=== PATIENT | female | born 1975 | race Caucasian/White ===

== ENCOUNTER 2017-01-13 10:35 | Emergency (ER) | payer OTHER ==
--- NOTE | 2017-01-13 13:04 | ED CLINICAL REPORT ---
Clinical Report - Physicians/Mid Levels [facility] [address] [place] [address] 01/13/2017 10:36 Patient: ADRIAN MEJIAS Time Seen: 11:21. Arrived- By private vehicle. Historian- patient. HISTORY OF PRESENT ILLNESS Chief Complaint: VOMITING and DIARRHEA. This started about 6 days ago and is still present. No recent travel. She has had nausea, vomiting, diarrhea and a change in diabetic routine (Pt is chronically noncompliant with her diabetic and antihypertensive medications.). No black stools, bloody stools, abdominal pain, constipation or flank pain. No history of possible bad food exposure or known contact with a sick individual. Has not recently been camping or on antibiotics. The illness is described as moderate. (patient states that for the first 5 days, she is having diarrhea only. However, the vomiting started this morning at 4:30. Patient states she vomited twice and has not vomited since. She states that she has only had a couple of sips of water however.). Similar symptoms previously: Occasionally. Recent medical care: Not recently seen/assessed. REVIEW OF SYSTEMS No fever, muscle aches, difficulty with urination, dark urine or headache. No dizziness, sore throat, cough, chest pain or difficulty breathing. No excessive urination, skin rash, jaundice, back pain or fainting episodes. No blurred vision. Denies current . All systems otherwise negative, except as recorded above. PAST HISTORY Problems: Substance Abuse. Bipolar Disorder. Anxiety Reaction. Ulna Fracture. Hyperglycemia. TMJ Syndrome. Cluster Headache. Suicidal Ideation. Depression. Hypertension. Diabetes Mellitus. Dental Caries. Immunizations. LNMP - Last Normal Menstrual Period. Additional Surgeries: . Tonsillectomy. Tubal Ligation. Medications: None. Allergies: Celexa. PCN. SOCIAL HISTORY Smoker- current status unknown. No alcohol use or drug use. ADDITIONAL NOTES The nursing notes have been reviewed. PHYSICAL EXAM Vital Signs: 01/13/2017 10:43 BP: 140/85. HR: 110. RR: 20. O2 saturation: 100%. Temp: 98.2 F. Pain level now: 5/10. Have been reviewed. Appearance: Alert. Oriented X3. No acute distress. Eyes: Pupils equal, round and reactive to light. Eyes normal inspection. ENT: Nose normal. Neck: Normal inspection. CVS: Normal heart rate and rhythm. Heart sounds normal. Pulses normal. Respiratory: No respiratory distress. Breath sounds normal. Abdomen: Soft. Mild tenderness diffusely. Back: Normal inspection. Skin: Skin warm and dry. Normal skin color. No rash. Normal skin turgor. Extremities: Extremities exhibit normal ROM. No lower extremity edema. Neuro: Oriented X 3. No motor deficit. No sensory deficit. LABS, X-RAYS, AND EKG Laboratory Tests: UA-Culture if indicated: (SUGAR: 01/13/2017 12:00) ( [facility] 01/13/2017 12:34) Final results Test Result Flag Units (Reference) URINE COLOR YELLOW URINE APPEARANCE CLEAR URINE GLUCOSE NEGATIVE (NEGATIVE) URINE BILIRUBIN NEGATIVE (NEGATIVE) URINE KETONE NEGATIVE (NEGATIVE) URINE SPECIFIC GRAVITY >= 1.030 (1.010-1.030) URINE PH 6.0 (5.0-8.0) URINE PROTEIN NEGATIVE (NEGATIVE) URINE UROBILINOGEN 0.2 EU/dL (0.2-1.0) URINE NITRITE NEGATIVE (NEGATIVE) URINE BLOOD NEGATIVE (NEGATIVE) URINE LEUK ESTERASE NEGATIVE (NEGATIVE) URINE RBC 0-1 rbc/hpf (0-1) URINE WBC 1-3 wbc/hpf (0-1) URINE EPITHELIAL CELLS 1-3 EPI/hpf (0-5) URINE BACTERIA FEW (1+) (NONE SEEN) URINE COMMENT CULT NOT INDICATED 1+ AMORPHOUS CRYSTALSURINE CULTURES ARE SET-UP BASED ON THE FOLLOWING CRITERIA:POSITIVE NITRITEPOSITIVE LEUKOCYTE ESTERASEGREATER THAN 10 WHITE BLOOD CELLSMODERATE (2+) OR GREATER BACTERIA Urine: (SUGAR: 01/13/2017 12:00) ( [facility] 01/13/2017 12:29) Final results Test Result Flag Units (Reference) URINE NEGATIVE CBC w Diff: (SUGAR: 01/13/2017 10:55) ( [facility] 01/13/2017 13:06) Final results Test Result Flag Units (Reference) WHITE BLOOD COUNT 18.1 H K/uL (4.5-11.5) RED BLOOD COUNT 4.39 M/uL (4.00-5.20) HEMOGLOBIN 14.4 gm/dL (12.0-16.0) HEMATOCRIT 42.4 % (36.0-46.0) MEAN CELL VOLUME 97 fL (80-100) MEAN CORPUSCULAR HGB 33 pg (26-34) MEAN CORPUSCULAR HGB CONC 34 g/dL (31-37) RED CELL DISTRIBUTION WIDTH 12.2 % (11.6-14.8) PLATELET COUNT 266 K/uL (150-400) NEUTROPHIL % 82.2 H % (50-75) LYMPH % 12.0 L % (25-40) MONO % 4.8 % (3-14) EOSINOPHIL % 0.8 % (0-4) BASOPHIL % 0.2 % (0-2) CMP: (SUGAR: 01/13/2017 10:55) ( MsgRcvd 01/13/2017 11:27) Final results Test Result Flag Units (Reference) GLUCOSE 152 H mg/dL (70-110) BUN 11 mg/dL (7-18) CREATININE 1.0 mg/dL (0.6-1.3) Estimated GFR >60 mL/min Estimated GFR- >60 mL/min Note: Persistent reduction over 3 months in eGFR<60 mL/min/1.73 m2 defines CKD. Patients with eGFR values>=60 mL/min/1.73 m2 may also have CKD if evidence ofpersistent proteinuria. Additional information may be foundat www.kidney.org. SODIUM 138 mmol/L (136-145) POTASSIUM 4.2 mmol/L (3.5-5.1) CHLORIDE 102 mmol/L (98-107) CARBON DIOXIDE 26 mmol/L (21-32) CALCIUM 8.5 mg/dL (8.5-10.1) TOTAL PROTEIN 7.1 g/dL (6.4-8.2) ALBUMIN 3.1 L g/dL (3.3-5.0) BILIRUBIN, TOTAL 0.5 mg/dL (0.0-1.0) ALKALINE PHOSPHATASE 72 U/L (46-116) AST (SGOT) 15 U/L (15-37) ALT (SGPT) 28 U/L (12-78) . Pulse Oximetry: 01/13/2017 10:43 O2 saturation: 100%. (FIO2 - room air). Interpretation: normal. PROGRESS AND PROCEDURES Course of Care: The patient was given 1 L bolus of 0.9 normal saline, as well as IV Zofran 8 mg. She was found to be feeling somewhat better. Laboratory studies were obtained, and patient was found to have a mild hyperglycemia with a glucose of 152. The remainder of her labs were unremarkable as was her urinalysis. I did discuss with the patient that she should work with her primary care physician to get back on her medications. In the meantime, I will send her home with oral dissolving Zofran. Patient should have a clear liquid diet until she is improved. Patient counseled in person regarding the patient's stable condition, test results, diagnosis and need for follow-up. Old medical records reviewed. Disposition: Discharged in improved condition. Condition: stable. CLINICAL IMPRESSION Acute viral gastroenteritis. INSTRUCTIONS Drink plenty of fluids. Warnings: GENERAL WARNINGS: Return or contact your physician immediately if your condition worsens or changes unexpectedly, if not improving as expected, or if other problems arise. Prescription Medications: Zofran (orally disintegrating tablets) 4 mg: take 1-2 orally every 6 hours as needed for nausea. Dispense twenty (20). No refill. Substitution is permissible. Understanding of the discharge instructions verbalized by patient and family. Follow-up with: [facility], , , [address], , [place], [address] Follow up. Call for the next available appointment. Reason for referral: Establish care. (Electronically signed by Angely Terry MD 01/13/2017 13:23)
--- NOTE | 2017-01-13 13:04 | ED NURSING NOTES ---
Clinical Report - Nurses [facility] [address] [place] [address] 01/13/2017 10:36 Patient: ADRIAN MEJIAS TRIAGE Acuity: LEVEL 3. Chief Complaint: ABDOMINAL PAIN, VOMITING and DIARRHEA and (hip pain). Alert. No acute distress. SEPSIS SCREEN: Sepsis Screen. Negative (no infection suspected/documented). --10:47 Mandie Gong R.N. 10:43 01/13/17. BP: 140/85. HR: 110. RR: 20. O2 saturation: 100%. Temp: 98.2 F (oral). Pain level now: 12/31. --10:47 Mandie Gong R.N. Weight: 63.5 kg stated. Height/Length: 64 inches Per Patient. BMI: 24. --10:45 Mandie Gong R.N. Medications None. --10:44 Mandie Gong R.N. Medication/allergy information source: the patient. --10:47 Mnadie Gong R.N. Allergies Celexa. PCN. --10:44 Mandie Gong R.N. History Arrived by private vehicle. Historian: patient. Accompanied by mother. Primary physician (none). Onset. (6 days ago). Treatment ACCOUNT MANAGER: None. PAST MEDICAL HX: Immunizations: up-to-date. Last normal menstrual period was 3 weeks ago. Sexual history - sexually active. No contraception. SOCIAL HX: Light tobacco smoker (cigarette)- less than 1/2 a pack per day. No alcohol use or drug use. FALL RISK ASSESSMENT: Fall risk assessment completed. No fall risk identified. NUTRITIONAL RISK ASSESSMENT: The nutritional risk assessment revealed no deficiencies. FUNCTIONAL ASSESSMENT: Functional assessment: no impairments noted. LEARNING NEEDS ASSESSMENT: The learning needs assessment revealed no barriers. SKIN INTEGRITY ASSESSMENT: Skin integrity risk assessment completed. No skin integrity risk identified. --10:47 Mandie Gong R.N. PROBLEMS: Substance Abuse. Viral Disease. Mental Illness. Bipolar Disorder. Anxiety Reaction. Ulna Fracture. Headache. Hyperglycemia. TMJ Syndrome. Cluster Headache. Suicidal Ideation. Depression. Hypertension. Diabetes Mellitus. Dental Pain. Dental Caries. Immunizations. LNMP - Last Normal Menstrual Period. --10:44 Mandie Gong R.N. The following entry was modified by Angely Terry MD, 12:55 Reason - duplicate <<STRICKEN ENTRY-- Chronic Headache. --12:54 Angely Terry MD --END STRIKE>>. ADDITIONAL SURGERIES: . Tonsillectomy. --10:44 Mandie Gnog R.N. Tubal Ligation. --10:46 Mandie Gong R.N. Assessment GENERAL / NEURO / PSYCH: Alert. Oriented X 4. Appears in no acute distress. Patient appears calm and cooperative. RESPIRATORY: Respirations not labored. CVS: Capillary refill less than 2 seconds. GI / : Abdomen soft and nontender. SKIN: Mucous membranes are pink. Skin is warm and dry. --10:47 Mandie Gong R.N. Interventions ID band on patient. To treatment room. --10:47 Mandie Gong R.N. PHYSICAL ASSESSMENT 10:47 01/13/17. Ambulatory to room. GENERAL / NEURO / PSYCH: Alert. Oriented X 4. Appears in no acute distress. HEENT: Mucous membranes are pink. RESPIRATORY: Respirations not labored. CVS: Capillary refill less than 2 seconds. GI / : Abdomen soft and nontender. SKIN: Skin is warm and dry. --10:47 Mandie Gong R.N. NURSING PROGRESS NOTES 10:48 01/13/17. Patient gowned. Two patient identifiers checked. Call light placed in reach. Side rails up x 1. Bed placed in lowest position. Brakes of bed on. Patient ready for evaluation- chart flagged and ED physician notified. --10:48 Mandie Gong R.N. 11:03 01/13/2017 Site #1 started via IV in the right antecubital space with an 20g angiocath, with aseptic technique and good blood return; one attempt. Blood drawn: rainbow set. Labeled in the presence of the patient. --11:03 Mandie Gong R.N. 11:04 01/13/2017 Started bag #1 1000 mL IV Fluids IV NS (Saline); at 999 mL/hr over 1 hour(s) via site #1 via IV pump. Allergies verified and confirmed 5 rights. IV patency established. IV site checked: no pain, redness, or swelling. IV flushed thoroughly pre- and post-medication administration. --11:04 Mandie Gong R.N. 11:45 01/13/2017 Zofran (Ondansetron HCl) IVP 8 mg given over 2 minute(s) via site #1. Allergies verified and confirmed 5 rights. IV patency established. IV site checked: no pain, redness, or swelling. IV flushed thoroughly pre- and post-medication administration. --11:45 Liliam Palacios R.N. 12:02 01/13/17. Patient ID band checked for patient name and birthdate. Instructions provided to collect clean catch urine and patient verbalized understanding. Clean catch urine collected with return of yellow-colored clear urine; sample sent to lab for urinalysis and HCG. Specimen labeled in the presence of the patient. --12:02 Mandie Gong R.N. 12:02 01/13/17. ( Pt ambulated to BR.). --12:02 Mandie Gong R.N. 12:55 01/13/2017 IV Fluids IV NS Discontinued: bag #1 infused upon discharge. Total amount infused: 1000 mL. IV patency established. IV site checked: no pain, redness, or swelling. IV flushed thoroughly. --13:11 Delbert Burnette R.N. DISPOSITION / DISCHARGE 13:09 01/13/2017 Site #1 removed upon discharge. Catheter intact. --13:09 Delbert Burnette R.N. 13:10 01/13/17. Condition at departure: improved. The goals identified in the patient's plan of care were met. No learning barriers present. Discharge instructions provided and reviewed with the patient and family. Reviewed warnings. Reviewed medication(s). Treatments reviewed. Patient and family verbalized understanding. Written instructions provided in [employer]. The patient was discharged by the physician. She was discharged home and accompanied by family. She left the Emergency Department ambulatory and via private vehicle. Family member driving. FALL RISK ASSESSMENT: Fall risk assessment completed. No fall risk identified. --13:10 Delbert Burnette R.N. 13:09 01/13/17. BP: 126/87. HR: 99. RR: 13. O2 saturation: 98% on room air. Temp: 97.9 F (oral). --13:10 Delbert Burnette R.N. 13:11 01/13/17. Departure time: 13:11. --13:11 Delbert Burnette R.N. Locked/Released at 01/13/2017 13:14 by Delbert Burnette R.N.
--- NOTE | 2017-01-13 13:04 | ED ORDER SUMMARY ---
..... Patient: ADRIAN MEJIAS OrderSheet [facility] VisitID: [id number] [address] [place] [address] 41y, F Registration Date/Time: 01/13/2017 ORDER SHEET Weight: 63.5 kg (stated) Allergies: Celexa, PCN GENERAL ORDERS: CBC w Diff Urgent (11:04 01/13/2017 MWinterer R.N. per protocol) (Ack 11:13 NHouse ER Tech1) (11:45 SReitz R.N.) CMP Urgent (11:01/13/2017 MWinterer R.N. per protocol) (Ack 11:13 NHouse ER Tech1) (11:45 SReitz R.N.) UA-Culture if indicated Urgent (12:01/13/2017 MWinterer R.N. per protocol) (Ack 12:02 NHouse ER Tech1) (12:02 NHouse ER Tech1) Urine Urgent (12:01/13/2017 MWinterer R.N. per protocol) (Ack 12:02 NHouse ER Tech1) (12:02 NHouse ER Tech1) MEDICATION ORDERS: IV FLUIDS: IV NS : initial bolus none -, then 1000 mL/hr (NOW) (11:03 01/13/2017 MWinterer R.N. per protocol) (11:04 MWinterer R.N.) Zofran IV 8 mg (NOW) (11:41 01/13/2017 Sergio COOL) (Ack 11:43 SReitz R.N.) (11:45 SReitz R.N.) ORDER SHEET NOTES: [Electronically signed by Delbert Burnette R.N. (13:14 01/13/2017)] [Electronically signed by Angely Terry MD (13:01/13/2017)] [Electronically locked/signed by Delbert Burnette R.N. (13:14 01/13/2017)]
--- NOTE | 2017-01-13 13:04 | ED ORDER SUMMARY ---
..... Patient: ADRIAN MEJIAS OrderSheet [facility] VisitID: [id number] [address] [place] [address] 41y, F Registration Date/Time: 01/13/2017 ORDER SHEET Weight: 63.5 kg (stated) Allergies: Celexa, PCN GENERAL ORDERS: CBC w Diff Urgent (11:04 01/13/2017 MWinterer R.N. per protocol) (Ack 11:13 NHouse ER Tech1) (11:45 SReitz R.N.) CMP Urgent (11:01/13/2017 MWinterer R.N. per protocol) (Ack 11:13 NHouse ER Tech1) (11:45 SReitz R.N.) UA-Culture if indicated Urgent (12:01/13/2017 MWinterer R.N. per protocol) (Ack 12:02 NHouse ER Tech1) (12:02 NHouse ER Tech1) Urine Urgent (12:01/13/2017 MWinterer R.N. per protocol) (Ack 12:02 NHouse ER Tech1) (12:02 NHouse ER Tech1) MEDICATION ORDERS: IV FLUIDS: IV NS : initial bolus none -, then 1000 mL/hr (NOW) (11:03 01/13/2017 MWinterer R.N. per protocol) (11:04 MWinterer R.N.) Zofran IV 8 mg (NOW) (11:41 01/13/2017 Sergio COOL) (Ack 11:43 SReitz R.N.) (11:45 SReitz R.N.) ORDER SHEET NOTES: [Electronically signed by Delbert Burnette R.N. (13:14 01/13/2017)] [Electronically signed by Angely Terry MD (13:01/13/2017)] [Electronically locked/signed by Delbert Burnette R.N. (13:14 01/13/2017)]
--- NOTE | 2017-01-13 13:04 | ED CLINICAL REPORT ---
Clinical Report - Physicians/Mid Levels [facility] [address] [place] [address] 01/13/2017 10:36 Patient: ADRIAN MEJIAS Time Seen: 11:21. Arrived- By private vehicle. Historian- patient. HISTORY OF PRESENT ILLNESS Chief Complaint: VOMITING and DIARRHEA. This started about 6 days ago and is still present. No recent travel. She has had nausea, vomiting, diarrhea and a change in diabetic routine (Pt is chronically noncompliant with her diabetic and antihypertensive medications.). No black stools, bloody stools, abdominal pain, constipation or flank pain. No history of possible bad food exposure or known contact with a sick individual. Has not recently been camping or on antibiotics. The illness is described as moderate. (patient states that for the first 5 days, she is having diarrhea only. However, the vomiting started this morning at 4:30. Patient states she vomited twice and has not vomited since. She states that she has only had a couple of sips of water however.). Similar symptoms previously: Occasionally. Recent medical care: Not recently seen/assessed. REVIEW OF SYSTEMS No fever, muscle aches, difficulty with urination, dark urine or headache. No dizziness, sore throat, cough, chest pain or difficulty breathing. No excessive urination, skin rash, jaundice, back pain or fainting episodes. No blurred vision. Denies current . All systems otherwise negative, except as recorded above. PAST HISTORY Problems: Substance Abuse. Bipolar Disorder. Anxiety Reaction. Ulna Fracture. Hyperglycemia. TMJ Syndrome. Cluster Headache. Suicidal Ideation. Depression. Hypertension. Diabetes Mellitus. Dental Caries. Immunizations. LNMP - Last Normal Menstrual Period. Additional Surgeries: . Tonsillectomy. Tubal Ligation. Medications: None. Allergies: Celexa. PCN. SOCIAL HISTORY Smoker- current status unknown. No alcohol use or drug use. ADDITIONAL NOTES The nursing notes have been reviewed. PHYSICAL EXAM Vital Signs: 01/13/2017 10:43 BP: 140/85. HR: 110. RR: 20. O2 saturation: 100%. Temp: 98.2 F. Pain level now: 5/10. Have been reviewed. Appearance: Alert. Oriented X3. No acute distress. Eyes: Pupils equal, round and reactive to light. Eyes normal inspection. ENT: Nose normal. Neck: Normal inspection. CVS: Normal heart rate and rhythm. Heart sounds normal. Pulses normal. Respiratory: No respiratory distress. Breath sounds normal. Abdomen: Soft. Mild tenderness diffusely. Back: Normal inspection. Skin: Skin warm and dry. Normal skin color. No rash. Normal skin turgor. Extremities: Extremities exhibit normal ROM. No lower extremity edema. Neuro: Oriented X 3. No motor deficit. No sensory deficit. LABS, X-RAYS, AND EKG Laboratory Tests: UA-Culture if indicated: (SUGAR: 01/13/2017 12:00) ( [facility] 01/13/2017 12:34) Final results Test Result Flag Units (Reference) URINE COLOR YELLOW URINE APPEARANCE CLEAR URINE GLUCOSE NEGATIVE (NEGATIVE) URINE BILIRUBIN NEGATIVE (NEGATIVE) URINE KETONE NEGATIVE (NEGATIVE) URINE SPECIFIC GRAVITY >= 1.030 (1.010-1.030) URINE PH 6.0 (5.0-8.0) URINE PROTEIN NEGATIVE (NEGATIVE) URINE UROBILINOGEN 0.2 EU/dL (0.2-1.0) URINE NITRITE NEGATIVE (NEGATIVE) URINE BLOOD NEGATIVE (NEGATIVE) URINE LEUK ESTERASE NEGATIVE (NEGATIVE) URINE RBC 0-1 rbc/hpf (0-1) URINE WBC 1-3 wbc/hpf (0-1) URINE EPITHELIAL CELLS 1-3 EPI/hpf (0-5) URINE BACTERIA FEW (1+) (NONE SEEN) URINE COMMENT CULT NOT INDICATED 1+ AMORPHOUS CRYSTALSURINE CULTURES ARE SET-UP BASED ON THE FOLLOWING CRITERIA:POSITIVE NITRITEPOSITIVE LEUKOCYTE ESTERASEGREATER THAN 10 WHITE BLOOD CELLSMODERATE (2+) OR GREATER BACTERIA Urine: (SUGAR: 01/13/2017 12:00) ( [facility] 01/13/2017 12:29) Final results Test Result Flag Units (Reference) URINE NEGATIVE CBC w Diff: (SUGAR: 01/13/2017 10:55) ( [facility] 01/13/2017 13:06) Final results Test Result Flag Units (Reference) WHITE BLOOD COUNT 18.1 H K/uL (4.5-11.5) RED BLOOD COUNT 4.39 M/uL (4.00-5.20) HEMOGLOBIN 14.4 gm/dL (12.0-16.0) HEMATOCRIT 42.4 % (36.0-46.0) MEAN CELL VOLUME 97 fL (80-100) MEAN CORPUSCULAR HGB 33 pg (26-34) MEAN CORPUSCULAR HGB CONC 34 g/dL (31-37) RED CELL DISTRIBUTION WIDTH 12.2 % (11.6-14.8) PLATELET COUNT 266 K/uL (150-400) NEUTROPHIL % 82.2 H % (50-75) LYMPH % 12.0 L % (25-40) MONO % 4.8 % (3-14) EOSINOPHIL % 0.8 % (0-4) BASOPHIL % 0.2 % (0-2) CMP: (SUGAR: 01/13/2017 10:55) ( MsgRcvd 01/13/2017 11:27) Final results Test Result Flag Units (Reference) GLUCOSE 152 H mg/dL (70-110) BUN 11 mg/dL (7-18) CREATININE 1.0 mg/dL (0.6-1.3) Estimated GFR >60 mL/min Estimated GFR- >60 mL/min Note: Persistent reduction over 3 months in eGFR<60 mL/min/1.73 m2 defines CKD. Patients with eGFR values>=60 mL/min/1.73 m2 may also have CKD if evidence ofpersistent proteinuria. Additional information may be foundat www.kidney.org. SODIUM 138 mmol/L (136-145) POTASSIUM 4.2 mmol/L (3.5-5.1) CHLORIDE 102 mmol/L (98-107) CARBON DIOXIDE 26 mmol/L (21-32) CALCIUM 8.5 mg/dL (8.5-10.1) TOTAL PROTEIN 7.1 g/dL (6.4-8.2) ALBUMIN 3.1 L g/dL (3.3-5.0) BILIRUBIN, TOTAL 0.5 mg/dL (0.0-1.0) ALKALINE PHOSPHATASE 72 U/L (46-116) AST (SGOT) 15 U/L (15-37) ALT (SGPT) 28 U/L (12-78) . Pulse Oximetry: 01/13/2017 10:43 O2 saturation: 100%. (FIO2 - room air). Interpretation: normal. PROGRESS AND PROCEDURES Course of Care: The patient was given 1 L bolus of 0.9 normal saline, as well as IV Zofran 8 mg. She was found to be feeling somewhat better. Laboratory studies were obtained, and patient was found to have a mild hyperglycemia with a glucose of 152. The remainder of her labs were unremarkable as was her urinalysis. I did discuss with the patient that she should work with her primary care physician to get back on her medications. In the meantime, I will send her home with oral dissolving Zofran. Patient should have a clear liquid diet until she is improved. Patient counseled in person regarding the patient's stable condition, test results, diagnosis and need for follow-up. Old medical records reviewed. Disposition: Discharged in improved condition. Condition: stable. CLINICAL IMPRESSION Acute viral gastroenteritis. INSTRUCTIONS Drink plenty of fluids. Warnings: GENERAL WARNINGS: Return or contact your physician immediately if your condition worsens or changes unexpectedly, if not improving as expected, or if other problems arise. Prescription Medications: Zofran (orally disintegrating tablets) 4 mg: take 1-2 orally every 6 hours as needed for nausea. Dispense twenty (20). No refill. Substitution is permissible. Understanding of the discharge instructions verbalized by patient and family. Follow-up with: [facility], , , [address], , [place], [address] Follow up. Call for the next available appointment. Reason for referral: Establish care. (Electronically signed by Angely Terry MD 01/13/2017 13:23)
--- NOTE | 2017-01-13 13:23 | ED MAR SUMMARY ---
..... Medication Administration Record [facility] [address] [place] [address] Patient: ADRIAN MEJIAS Visit ID: [id number] 41y, F Weight: 63.5 kg Height/Length: 64 in BMI: 24 ALLERGIES: Celexa, PCN Start 11:04 01/13/2017 Mandie Gong RSally, Stop 12:55 01/13/2017 Delbert Burnette RSally Medication Administered: IV NS (SALINE), Dose: IV Fluids over 1 hour(s), Rate: 999 mL/hr, Dispensed: 1000 mL bag, Site: #1 right AC. Medication Ordered: IV NS : initial bolus none -, then 1000 mL/hr (NOW). Given 11:45 01/13/2017 Liliam Palacios RSally Medication Administered: ZOFRAN [IVP] (ONDANSETRON HCL), Dose: 8 mg IVP over 2 minute(s), Site: #1 right AC. Medication Ordered: Zofran IV 8 mg (NOW).
--- NOTE | 2017-01-13 13:23 | ED DISCHARGE INSTRUCTIONS ---
Patient: ADRIAN MEJIAS General Instructions [facility] VisitID: [id number] [address] [place] [address] 41y, F Registration Date/Time: 01/13/2017 Acute viral gastroenteritis. INSTRUCTIONS Drink plenty of fluids. Warnings: GENERAL WARNINGS: Return or contact your physician immediately if your condition worsens or changes unexpectedly, if not improving as expected, or if other problems arise. Prescription Medications: Zofran (orally disintegrating tablets) 4 mg: take 1-2 orally every 6 hours as needed for nausea. Dispense twenty (20). No refill. Substitution is permissible. Understanding of the discharge instructions verbalized by patient and family. Follow-up with: [facility], , , [address], [place], [address] Follow up. Call for the next available appointment. Reason for referral: Establish care. ADDITIONAL INFORMATION Viral Gastroenteritis (6Yr-Adult) Gastroenteritis is another name for thestomach flu.It is most often caused by a virus that affects the stomach and intestinal tract. Symptoms include stomach cramping and fever, vomiting and/or diarrhea, and can last from 2 to 7 days. The danger from repeated vomiting or diarrhea is dehydration. This is the loss of too much water and minerals from the body. When this occurs, body fluids must be replaced. Antibiotics are not effective for this illness, but simple home treatment will be helpful. Home Care If symptoms are severe, rest at home for the next 24 hours. Avoid tobacco, caffeine, and alcohol use, which can worsen symptoms. Acetaminophen (Tylenol) or ibuprofen (Motrin, Advil) may be usedfor fever or pain unless another medication was prescribed. NOTE: If you have chronic liver or kidney disease or ever had a stomach ulcer or GI bleeding, talk with your doctor before using these medicines. Aspirin should never be used in anyone under 18 years of age who is ill with a fever. It may cause severe liver damage. If medicines for diarrhea or vomiting were prescribed, be sure they are takenonly as directed. If vomiting, drink small amounts of clear fluids (such as water, sports drinks, clear sodas) at frequent intervals to prevent dehydration. Start with 1 to 2 tablespoons every 10 minutes. Once vomiting stops, follow these guidelines: During The First 12 To 24 Hours follow the diet below: Beverages: Sport drinks like Gatorade, soft drinks without caffeine; joseph ophelia, mineral water (plain or flavored), decaffeinated tea and coffee. Soups: Clear broth, consomm and bouillon Desserts: Plain gelatin (Jell-O), Popsicles and fruit juice bars. During The Next 24 Hours you may add the following to the above: Hot cereal, plain toast, bread, rolls, crackers Plain noodles, rice, mashed potatoes, chicken noodle or rice soup Unsweetened canned fruit (avoid pineapple), bananas Limit fat intake to less than 15 grams per day by avoiding margarine, butter, oils, mayonnaise, sauces, gravies, fried foods, peanut butter, meat, poultry, and fish. Limit fiber; avoid raw or cooked vegetables, fresh fruits (except bananas), and bran cereals. Limit caffeine and chocolate. Do not use spices or seasonings except salt. During The Next 24 Hours The patient can gradually resume a normal diet as symptoms lessen. Preventing Spread Hand washing with soap and water is the best way to prevent the spread of viruses. Caregivers should wash their hands before andafter touching the sick person. The sick person, as well as everyone in the family,should wash their hands after using the toilet and before meals. Clean the toilet after each use. People with diarrhea should not prepare food for others. If you are preparing your own foods, wash your hands before and after. Follow Up with your doctor as advised. Call your doctor if you are not improving over the next 2 to 3 days. If a stool (diarrhea) sample was taken, you may call in 2 days (or as directed) for the results. Get Prompt Medical Attention if any of the following occur: Increasing abdominal pain Continued vomiting (unable to keep liquids down) Frequent diarrhea (more than 5 times a day) Blood in vomit or stool (black or red color) Dark urine, reduced urine output, or extreme thirst Weakness, dizziness, fainting Drowsiness, confusion, stiff neck, or seizure Fever of 100.4F (38C) oral or higher, not better with fever medication New rash You have been given the following additional information: Gastroenteritis, Viral (6Y-Adult) (Electronically signed by Angely Terry MD 01/13/2017 13:23)
--- NOTE | 2017-01-13 13:23 | ED MED RECONCILIATION SUMMARY ---
Patient: ADRIAN MEJIAS Medication Reconciliation Report [facility] VisitID: [id number] [address] [place] [address] 41y, F Registration Date/Time: 01/13/2017 Weight: 63.5 kg Height/Length: 64 in. BMI: 24.0 ALLERGIES: Celexa, PCN The patient's Home Medications are listed below: NONE. The source(s) of the original Home Medication information: patient The following Medications were given to the patient in the Emergency Department: IV NS IV Fluids bolus 0, then 999 mL/hr, administered: 01/13/2017 11:04:00 AM Zofran [IVP] IVP 8 mg, administered: 01/13/2017 11:45:00 AM The following Medications were prescribed to the patient: Zofran (orally disintegrating tablets) 4 mg: take 1-2 orally every 6 hours as needed for nausea. Dispense twenty (20). No refill. Substitution is permissible. -- Angely Terry MD
--- NOTE | 2017-01-13 13:23 | ED MAR SUMMARY ---
..... Medication Administration Record [facility] [address] [place] [address] Patient: ADRIAN MEJIAS Visit ID: [id number] 41y, F Weight: 63.5 kg Height/Length: 64 in BMI: 24 ALLERGIES: Celexa, PCN Start 11:04 01/13/2017 Mandie Gong RSally, Stop 12:55 01/13/2017 Delbert Burnette RSally Medication Administered: IV NS (SALINE), Dose: IV Fluids over 1 hour(s), Rate: 999 mL/hr, Dispensed: 1000 mL bag, Site: #1 right AC. Medication Ordered: IV NS : initial bolus none -, then 1000 mL/hr (NOW). Given 11:45 01/13/2017 Liliam Palacios RSally Medication Administered: ZOFRAN [IVP] (ONDANSETRON HCL), Dose: 8 mg IVP over 2 minute(s), Site: #1 right AC. Medication Ordered: Zofran IV 8 mg (NOW).
--- NOTE | 2017-01-13 13:23 | ED MED RECONCILIATION SUMMARY ---
Patient: ADRIAN MEJIAS Medication Reconciliation Report VisitID: [id number] [address] [place] [address] 41y, F Registration Date/Time: 01/13/2017 Weight: 63.5 kg Height/Length: 64 in. BMI: 24.0 ALLERGIES: Celexa, PCN The patient's Home Medications are listed below: NONE. The source(s) of the original Home Medication information: patient The following Medications were given to the patient in the Emergency Department: IV NS IV Fluids bolus 0, then 999 mL/hr, administered: 01/13/2017 11:04:00 AM Zofran [IVP] IVP 8 mg, administered: 01/13/2017 11:45:00 AM The following Medications were prescribed to the patient: Zofran (orally disintegrating tablets) 4 mg: take 1-2 orally every 6 hours as needed for nausea. Dispense twenty (20). No refill. Substitution is permissible. -- Angely Terry MD
== END 2017-01-13 13:11 | disposition home or self-care (01) ==
LOC: ED SRH 10:35
DX: A08.39 Other viral enteritis (principal); I10 Essential (primary) hypertension; E11.9 Type 2 diabetes mellitus without complications; F31.9 Bipolar disorder, unspecified; F17.210 Nicotine dependence, cigarettes, uncomplicated; Z88.0 Allergy status to penicillin; Z88.8 Allergy status to other drugs, medicaments and biological substances
CPT/HCPCS: 90004; 90100; 93070; 95059

== ENCOUNTER 2017-01-14 00:44 | Observation (INO) | payer OTHER ==
[~2017-01-14] VITALS: Ht 162.6 cm; Wt 69.9 kg
--- NOTE | 2017-01-14 03:14 | ED ORDER SUMMARY ---
..... Patient: ADRIAN MEJIAS OrderSheet [facility] VisitID: [id number] [place] [address] 41y, F Registration Date/Time: 01/14/2017 ORDER SHEET Weight: 61.2 kg (stated) Allergies: Celexa, PCN GENERAL ORDERS: CBC w Diff Urgent (01:01/14/2017 Aj Grace) (Ack 1:11 Carli) (1:28 RMarsden R.N.) CMP Urgent (:01/14/2017 Aj Grace) (Ack 1:11 Carli) (1:28 RMarsden R.N.) Amylase Urgent (:01/14/2017 Aj Grace) (Ack 1:12 Carli) (1:28 RMarsden R.N.) Lipase Urgent (:01/14/2017 Aj Grace) (Ack 1:12 Carli) (1:28 RMarsden R.N.) CT Abd/Pel w Cont (No) (06/09.1) Urgent (01:01/14/2017 Aj Grace) (Ack 2:06 Carli) (2:19 RMarsden R.N.) MEDICATION ORDERS: IV FLUIDS: IV NS : initial bolus none -, then 1000 mL/hr for X1 (NOW) (:01/14/2017 Aj Grace) (Ack 1:28 RMarsden R.N.) (1:29 RMarsden R.N.) Zofran IV 4 mg (NOW) (:01/14/2017 Aj Grace) (Ack 1:28 RMarsden R.N.) (1:29 RMarsden R.N.) Toradol IV 30 mg (NOW) (:01/14/2017 Aj Grace) (Ack 1:28 RMarsden R.N.) (1:28 RMarsden R.N.) Famotidine IV 20 mg/50mL (NOW) (01:01/14/2017 Aj Grace) (1:35 Mc R.N.) Demerol IV 25 mg (HIGH ALERT MEDICATION, NOW) (02:37 01/14/2017 Aj Grace) (2:43 Mc Moseley.NShanell) Flagyl IV 500 mg/100mL (NOW) (03:11 01/14/2017 Aj Grace) Levofloxacin IV 500 mg/100mL (NOW) (03:12 01/14/2017 Aj Grace) IV Lactated Ringers : initial bolus none -, then 150 mL/hr (NOW) (03:12 01/14/2017 Aj Grace) ORDER SHEET NOTES: This document has not been locked and should not be saved in the medical record.
--- NOTE | 2017-01-14 03:14 | ED CLINICAL REPORT ---
Clinical Report - Physicians/Mid Levels [facility] [address] [place] [address] 01/14/2017 0:45 Patient: ADRIAN MEJIAS *This is a preliminary document and is subject to change Time Seen: 00:54; initial patient contact. Arrived- By ambulance. Historian- patient. HISTORY OF PRESENT ILLNESS Chief Complaint: VOMITING and DIARRHEA. This started yesterday and is still present (worse since 4 hours ago). It was abrupt in onset and has been constant. The patient has had nausea, vomiting, diarrhea and moderate, sharp, constant abdominal pain. The pain is described as located in the epigastrium and radiating to the back and associated with nausea, vomiting and diarrhea. No black stools or bloody stools. The illness is described as moderate. Similar symptoms previously: Once. Recent medical care: The patient was seen recently at this facility in the emergency department. ( Yesterday for N/V/D. No UTI, UPT neg, WBC 18k, no Amylase/Lipase done.). REVIEW OF SYSTEMS No fever, dark urine, excessive urination or jaundice. All systems otherwise negative, except as recorded above. PAST HISTORY Gastroenteritis. Substance Abuse. Viral Disease. Mental Illness. Bipolar Disorder. Anxiety Reaction. Ulna Fracture. Headache. Hyperglycemia. TMJ Syndrome. Cluster Headache. Suicidal Ideation. Hypertension. Depression. Diabetes Mellitus. Dental Pain. Dental Caries. Grief Reaction Adjustment Disorder Anxiety Reaction ADDITIONAL SURGERIES: . Tonsillectomy. Tubal Ligation. SOCIAL HISTORY Current every day smoker. No alcohol use or drug use. ADDITIONAL NOTES The nursing notes have been reviewed. PHYSICAL EXAM Vital Signs: 01/14/2017 00:52 BP: 169/109. HR: 105. RR: 20. O2 saturation: 100%. Temp: 98 F. Pain level now: 10/10. Hypertensive. Tachycardic. Respiratory rate normal. Temperature normal. Oxygen saturation normal. Appearance: Appears to be in pain. Patient in mild distress. Eyes: Eyes normal inspection. No scleral icterus. ENT: Dry mucous membranes present. CVS: Tachycardia. Heart sounds normal. Rhythm normal. Respiratory: No respiratory distress. Breath sounds normal. Abdomen: Soft. Moderate tenderness in the epigastric area. No guarding, rebound tenderness or Farrell's sign present. Bowel sounds normal. No organomegaly. No mass. Back: Normal inspection. No CVA tenderness. Skin: Skin warm and dry. Normal skin color. Neuro: Oriented X 3. LABS, X-RAYS, AND EKG Abdominal CT: Emphysematous cholecystitis, Cholelithiasis. Study type: abdomen and pelvis. Abdominal CT performed with IV contrast. The study was independently viewed by me, interpreted by the radiologist and discussed with the radiologist. Interpretation time: 03:06. Laboratory Tests: CBC w Diff: (SUGAR: 01/14/2017 01:25) ( MsgRcvd 01/14/2017 01:33) Final results Test Result Flag Units (Reference) WHITE BLOOD COUNT 11.4 # K/uL (4.5-11.5) RED BLOOD COUNT 4.11 M/uL (4.00-5.20) HEMOGLOBIN 13.5 gm/dL (12.0-16.0) HEMATOCRIT 39.2 % (36.0-46.0) MEAN CELL VOLUME 96 fL (80-100) MEAN CORPUSCULAR HGB 33 pg (26-34) MEAN CORPUSCULAR HGB CONC 34 g/dL (31-37) RED CELL DISTRIBUTION WIDTH 12.6 % (11.6-14.8) PLATELET COUNT 271 K/uL (150-400) NEUTROPHIL % 71.9 % (50-75) LYMPH % 19.4 L % (25-40) MONO % 6.2 % (3-14) EOSINOPHIL % 2.2 % (0-4) BASOPHIL % 0.3 % (0-2) CMP: (SUGAR: 01/14/2017 01:25) ( MsgRcvd 01/14/2017 01:46) Final results Test Result Flag Units (Reference) GLUCOSE 192 H mg/dL (70-110) BUN 14 mg/dL (7-18) CREATININE 1.1 mg/dL (0.6-1.3) Estimated GFR 58.47 mL/min Estimated GFR- >60 mL/min Note: Persistent reduction over 3 months in eGFR<60 mL/min/1.73 m2 defines CKD. Patients with eGFR values>=60 mL/min/1.73 m2 may also have CKD if evidence ofpersistent proteinuria. Additional information may be foundat www.kidney.org. SODIUM 140 mmol/L (136-145) POTASSIUM 3.5 # mmol/L (3.5-5.1) CHLORIDE 103 mmol/L (98-107) CARBON DIOXIDE 27 mmol/L (21-32) CALCIUM 8.3 L mg/dL (8.5-10.1) TOTAL PROTEIN 7.2 g/dL (6.4-8.2) ALBUMIN 3.2 L g/dL (3.3-5.0) BILIRUBIN, TOTAL 0.3 mg/dL (0.0-1.0) ALKALINE PHOSPHATASE 75 U/L (46-116) AST (SGOT) 14 L U/L (15-37) ALT (SGPT) 28 U/L (12-78) LIPASE 108 U/L (73-393) AMYLASE 55 U/L (25-115) . PROGRESS AND PROCEDURES Consult obtained from surgery. call returned 03:05 Dr. Mason, will see pt in the AM. Case discussed. Phone consult only. Rangel [address] Dr.
--- NOTE | 2017-01-14 03:14 | ED NURSING NOTES ---
Clinical Report - Nurses [place] [address] [place] [address] 01/14/2017 0:45 [id number] Triage time 00:52. Acuity: LEVEL 3. Chief Complaint: (back pain). 00:57 01/14/17. Alert. SEPSIS SCREEN: Sepsis Screen. Negative (no infection suspected/documented). JOSTIN COMA SCORE: Jostin Coma Scale: 15- eyes open spontaneously (4); best verbal response- oriented x 4 (5); best motor response- obeys commands (6). --00:57 Lavern Bacon R.N. 00:52 01/14/17. BP: 169/109. HR: 105. RR: 20. O2 saturation: 100%. Temp: 98 F. Pain level now: 06/02. --00:57 Lavern Bacon R.N. Weight: 61.2 kg stated. Height/Length: 64 inches Per Patient. BMI: 23.2. --00:56 Lavern Bacon R.N. Medications None. --00:53 Lavern Bacon R.N. Allergies Celexa. PCN. --00:54 Lavern Bacon R.N. History Arrived by EMS. Historian: patient. Primary physician (No PCP). This started today. ( Patient states she was diagnosed with a GI virus today. When she went home, she developed severe back pain and began vomiting. She reports she has vomited about 10 times tonight. She reports no injury to back.). 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 PAST MEDICAL HX: Immunizations: up-to-date. Denies current . SOCIAL HX: Heavy tobacco smoker- less than 1 pack per day. No alcohol use or drug use. FALL RISK ASSESSMENT: Fall risk assessment completed. No fall risk identified. NUTRITIONAL RISK ASSESSMENT: The nutritional risk assessment revealed no deficiencies. FUNCTIONAL ASSESSMENT: Functional assessment: no impairments noted. LEARNING NEEDS ASSESSMENT: The learning needs assessment revealed no barriers. SKIN INTEGRITY ASSESSMENT: Skin integrity risk assessment completed. No skin integrity risk identified. --00:57 Lavern Bacon R.N. PROBLEMS: Gastroenteritis. Substance Abuse. Viral Disease. Mental Illness. Bipolar Disorder. Anxiety Reaction. Ulna Fracture. Headache. Hyperglycemia. TMJ Syndrome. Cluster Headache. Suicidal Ideation. Hypertension. Depression. Diabetes Mellitus. Dental Pain. Dental Caries. Immunizations. LNMP - Last Normal Menstrual Period. --00:54 Lavern Bacon R.N. Grief Reaction [RuleOut]. Adjustment Disorder [RuleOut]. Anxiety Reaction [RuleOut]. --00:54 Lavern Bacon R.N. ADDITIONAL SURGERIES: . Tonsillectomy. Tubal Ligation. --00:54 Lavern Bacon R.N. Interventions ID band on patient. To treatment room. --00:57 Lavern Bacon R.N. PHYSICAL ASSESSMENT 01:00 01/14/17. To room via stretcher. GENERAL / NEURO / PSYCH: Alert. Oriented X 4. Appears in pain and anxious. HEENT: No facial asymmetry noted. Mucous membranes are pink. RESPIRATORY: Mild respiratory distress. Chest nontender. Breath sounds within normal limits. CVS: Capillary refill less than 2 seconds. Pulses within normal limits. GI / : Abdomen soft and nontender and normal bowel sounds. SKIN: Skin intact. Skin is warm and dry. Normal skin turgor. BACK: Normal inspection of the back. No back tenderness. ROM of the back is normal. --01:00 Lavern Bacon R.N. NURSING PROGRESS NOTES 01:03 01/14/17. Pulse oximeter and NIBP monitor placed on patient. Patient gowned. Head of bed elevated. Two patient identifiers checked. Call light placed in reach. Side rails up x 2. Bed placed in lowest position. Brakes of bed on. --01:03 Lavern Bacon R.N. 01:10 01/14/2017 Site #1 started via IV in the right antecubital space with an 20g angiocath; one attempt. Blood drawn: rainbow set. Labeled in the presence of the patient and sent to the lab. Saline lock flushed with 5 mL saline. --01:28 Lavern Bacon R.N. 01:13 01/14/2017 Toradol IVP 30 mg given over 2 minute(s) via site #1. Allergies verified and confirmed 5 rights. IV patency established. IV site checked: no pain, redness, or swelling. IV flushed thoroughly pre- and post-medication administration. IVP given by RN. --01:28 Lavern Bacon R.N. 01:19 01/14/2017 Zofran (Ondansetron HCl) IVP 4 mg given over 2 minute(s) via site #1. Allergies verified and confirmed 5 rights. IV patency established. IV site checked: no pain, redness, or swelling. IV flushed thoroughly pre- and post-medication administration. IVP given by RN. --01:29 Lavern Bacon R.N. 01:19 01/14/2017 Started bag #1 1000 mL IV Fluids IV NS (Saline); bolus of 1000 mL wide open via site #1. Allergies verified and confirmed 5 rights. IV patency established. IV site checked: no pain, redness, or swelling. IV flushed thoroughly pre- and post-medication administration. Completed per protocol. --01:29 Lavern Bacon R.N. 01:35 01/14/2017 Famotidine IVP 20 mg given over 30 minute(s) via site #1. Allergies verified and confirmed 5 rights. IV patency established. IV site checked: no pain, redness, or swelling. IV flushed thoroughly pre- and post-medication administration. IVP given by RN. --01:35 Lavern Bacon R.N. 01:49 01/14/17. BP: 150/91 taken on the left arm, while lying. HR: 89. RR: 15. O2 saturation: 100%. Pain level now: 05/03. --01:50 Lavern Bacon R.NShanell 01:46 01/14/2017 Toradol IVP Response: no adverse reaction. 01/14/2017 01:49 BP: 150/91. HR: 89. RR: 15. O2 saturation: 100%. Pain level now: 05/03. --01:52 Lavern Bacon R.NShanell 01:47 01/14/2017 IV Fluids IV NS Response: no adverse reaction. 01/14/2017 01:49 BP: 150/91. HR: 89. RR: 15. O2 saturation: 100%. Pain level now: 05/03. --01:52 Lavern Bacon R.N. 01:48 01/14/2017 Zofran IVP Response: no adverse reaction symptoms have improved (Patient has not vomited since receiving zofran.). 01/14/2017 01:49 BP: 150/91. HR: 89. RR: 15. O2 saturation: 100%. Pain level now: 05/03. --01:53 Lavern Bacon R.N. 01:48 01/14/2017 Famotidine IVP Response: no adverse reaction. 01/14/2017 01:49 BP: 150/91. HR: 89. RR: 15. O2 saturation: 100%. Pain level now: 05/03. --01:54 Lavern Bacon R.N. 01:52 01/14/2017 Toradol IVP Response: (Patient resting quietly in room.). --01:52 Lavern Bacon R.N. <<STRICKEN ENTRY-- late entry - 01:05. Reassessment after fluids administered and medication administered. She is resting quietly and has had no adverse reaction. ( Patient crying, rocking back in forth. Appears to be in pain. Patient is vomiting. Emesis bag provided and reassurance given.). --01:58 Lavern Bacon R.N. --END STRIKE>> Correction --01:58 Lavern Bacon R.N. late entry - 01:05. ( Patient crying, rocking back and forth. Appears to be in pain. Patient is vomiting. Emesis bag provided and reassurance given.). --01:59 Lavern Bacon R.N. Reassessment after fluids administered and medication administered. She is resting quietly and has had no adverse reaction. ( Patient states her pain has not improved. She is resting quietly. Patient has not vomited or dry heaved since receiving zofran.). --02:01 Lavern Bacon R.N. ( ED Physician notified of patient's pain.). --02:13 Lavern Bacon R.N. 02:43 01/14/2017 Demerol (Meperidine HCl) IVP 25 mg given over 2 minute(s) via site #1. Allergies verified and confirmed 5 rights. IV patency established. IV site checked: no pain, redness, or swelling. IV flushed thoroughly pre- and post-medication administration. IVP given by RN. --02:43 Lavern Bacon R.N. 02:40 01/14/17. BP: 155/93. HR: 88. RR: 15. O2 saturation: 99%. Pain level now: 05/03. --02:44 Lavern Bacon R.N. 03:37 01/14/17. BP: 130/88. HR: 95. RR: 14. O2 saturation: 100%. Temp: deferred. Pain level now: 10/31. --03:38 Lavern Bacon R.N. 03:29 01/14/2017 Started bag #1 1000 mL IV Fluids IV LACTATED RINGERS; at 150 mL/hr over 6 hour(s) via site #1 via IV pump. Allergies verified and confirmed 5 rights. IV patency established. IV site checked: no pain, redness, or swelling. IV flushed thoroughly pre- and post-medication administration. Completed per protocol. --03:39 Lavern Bacon R.N. 03:35 01/14/2017 Started 500 mg of Levofloxacin IVPB in bag #1 100 mL; at 100 mL/hr over 1 hour(s) via site #1 via IV pump. Allergies verified and confirmed 5 rights. IV patency established. IV site checked: no pain, redness, or swelling. IV flushed thoroughly pre- and post-medication administration. Completed per protocol. --03:40 Lavern Bacon R.N. 03:35 01/14/2017 Demerol IVP Response: no adverse reaction pain is improving. Symptoms have improved the patient feels better. 01/14/2017 03:37 BP: 130/88. HR: 95. RR: 14. O2 saturation: 100%. Pain level now: 10/31. --03:40 Lavern Bacon R.N. DISPOSITION / DISCHARGE 04:03 01/14/17. Admitted to the Critical Care Unit. Transported via stretcher by nurse with IV. Report was given to a nurse via a phone call. Report included patient's care, treatment, medications, reviewed medication reconcilliation, and condition (including any recent changes or anticipated changes). All questions were answered. Report was acknowledged and care was transferred. --04:03 Lavern Bacon R.N. 03:37 01/14/17. BP: 130/88. HR: 95. RR: 14. O2 saturation: 100%. Temp: deferred. Pain level now: 10/31. --04:03 Lavern Bacon R.N. Departure time: 04:06. --04:06 Lavern Bacon R.N. Locked/Released at 01/14/2017 6:42 by Lavern Bacon R.N.
--- NOTE | 2017-01-14 03:14 | ED ORDER SUMMARY ---
..... Patient: ADRIAN MEJIAS OrderSheet [facility] VisitID: [id number] [place] [address] 41y, F Registration Date/Time: 01/14/2017 ORDER SHEET Weight: 61.2 kg (stated) Allergies: Celexa, PCN GENERAL ORDERS: CBC w Diff Urgent (01:01/14/2017 Aj Grace) (Ack 1:11 Carli) (1:28 RMarsden R.N.) CMP Urgent (:01/14/2017 Aj Grace) (Ack 1:11 Carli) (1:28 RMarsden R.N.) Amylase Urgent (:01/14/2017 Aj Grace) (Ack 1:12 Carli) (1:28 RMarsden R.N.) Lipase Urgent (:01/14/2017 Aj Grace) (Ack 1:12 Carli) (1:28 RMarsden R.N.) CT Abd/Pel w Cont (No) (06/09.1) Urgent (01:01/14/2017 Aj Grace) (Ack 2:06 Carli) (2:19 RMarsden R.N.) MEDICATION ORDERS: IV FLUIDS: IV NS : initial bolus none -, then 1000 mL/hr for X1 (NOW) (:01/14/2017 Aj Grace) (Ack 1:28 RMarsden R.N.) (1:29 RMarsden R.N.) Zofran IV 4 mg (NOW) (:01/14/2017 Aj Grace) (Ack 1:28 RMarsden R.N.) (1:29 RMarsden R.N.) Toradol IV 30 mg (NOW) (:01/14/2017 Aj Grace) (Ack 1:28 RMarsden R.N.) (1:28 RMarsden R.N.) Famotidine IV 20 mg/50mL (NOW) (01:01/14/2017 Aj Grace) (1:35 Mc R.N.) Demerol IV 25 mg (HIGH ALERT MEDICATION, NOW) (02:37 01/14/2017 Aj Grace) (2:43 Mc Moseley.NShanell) Flagyl IV 500 mg/100mL (NOW) (03:11 01/14/2017 Aj Grace) Levofloxacin IV 500 mg/100mL (NOW) (03:12 01/14/2017 Aj Grace) IV Lactated Ringers : initial bolus none -, then 150 mL/hr (NOW) (03:12 01/14/2017 Aj Grace) ORDER SHEET NOTES: This document has not been locked and should not be saved in the medical record.
[2017-01-14 04:29] VITALS: BP 118/81
--- NOTE | 2017-01-14 06:41 | DIAGNOSTIC IMAGING REPORT ---
PROCEDURE: CT ABD/PELVIS WITH CONTRAST INDICATION: Abdominal and mid-back pain. Nausea and vomiting. TECHNIQUE: 125 ml of Isovue 300 were injected intravenously and axial images were obtained of the entire abdomen and pelvis with sagittal and coronal reformations. Preliminary report provided by Ranjit Shelton MD ([facility]). COMPARISON: None. FINDINGS: ABDOMEN: There is moderate distention of the gallbladder (9 cm x 5.5 cm) with biliary sludge, calcified gallstones. In addition, there are small punctate areas of lucency within the gallbladder (cholesterol crystals versus air emphysema). There is no evidence of gallbladder wall emphysema or wall thickening (2 mm) Liver, spleen, pancreas, kidneys, and aorta are normal. Bowel pattern is normal, including appendix. PELVIS: Uterus and adnexal structures are normal. No evidence of free fluid. IMPRESSION: 1. Moderate to moderate distention of the gallbladder cholelithiasis and biliary sludge compatible with cholecystitis. In addition, there are small intraluminal lucencies which may represent cholesterol stones (emphysematous cholecystitis seems less likely as there is no wall emphysema or wall thickening). 2. Otherwise negative CT abdomen and pelvis. 3. Findings discussed with Dr. Rangel Austin. All CT scans at this facility use dose modulation, iterative reconstruction, and/or weight-based dosing when appropriate to reduce radiation dose to as low as reasonably achievable.
--- NOTE | 2017-01-14 06:42 | ED MED RECONCILIATION SUMMARY ---
Patient: ADRIAN MEJIAS Medication Reconciliation Report [facility] VisitID: [id number] [address] [place] [address] 41y, F Registration Date/Time: 01/14/2017 Weight: 61.2 kg Height/Length: 64 in. BMI: 23.2 ALLERGIES: Celexa, PCN The patient's Home Medications are listed below: NONE. The source(s) of the original Home Medication information: Not obtained. The following Medications were given to the patient in the Emergency Department: Toradol [IVP] IVP 30 mg, administered: 01/14/2017 1:13:00 AM Zofran [IVP] IVP 4 mg, administered: 01/14/2017 1:19:00 AM IV NS IV Fluids bolus 1000 mL wide open, administered: 01/14/2017 1:19:00 AM Famotidine [IVP] IVP 20 mg, administered: 01/14/2017 1:35:00 AM Demerol [IVP] IVP 25 mg, administered: 01/14/2017 2:43:00 AM IV LACTATED RINGERS IV Fluids bolus 0, then 150 mL/hr, administered: 01/14/2017 3:29:00 AM Levofloxacin [IVPB] IVPB bolus 0, then 500 mg 100 mL/hr, administered: 01/14/2017 3:35:00 AM The following Medications were prescribed to the patient: None.
--- NOTE | 2017-01-14 06:42 | ED DISCHARGE INSTRUCTIONS ---
Patient: ADRIAN MEJIAS General Instructions [facility] VisitID: [id number] [address] [place] [address] 41y, F Registration Date/Time: 01/14/2017 Acute cholecystitis with cholelithiasis. No obstruction or pancreatitis. INSTRUCTIONS Follow-up: Screening today revealed the patient's blood pressure to be in the hypertensive range. The patient was admitted and blood pressure will be managed during the admission. (Electronically signed by Rangel Austin Dr. 01/14/2017 3:54)
--- NOTE | 2017-01-14 06:42 | ED MED RECONCILIATION SUMMARY ---
Patient: ADRIAN MEJIAS Medication Reconciliation Report [facility] VisitID: [id number] [address] [place] [address] 41y, F Registration Date/Time: 01/14/2017 Weight: 61.2 kg Height/Length: 64 in. BMI: 23.2 ALLERGIES: Celexa, PCN The patient's Home Medications are listed below: NONE. The source(s) of the original Home Medication information: Not obtained. The following Medications were given to the patient in the Emergency Department: Toradol [IVP] IVP 30 mg, administered: 01/14/2017 1:13:00 AM Zofran [IVP] IVP 4 mg, administered: 01/14/2017 1:19:00 AM IV NS IV Fluids bolus 1000 mL wide open, administered: 01/14/2017 1:19:00 AM Famotidine [IVP] IVP 20 mg, administered: 01/14/2017 1:35:00 AM Demerol [IVP] IVP 25 mg, administered: 01/14/2017 2:43:00 AM IV LACTATED RINGERS IV Fluids bolus 0, then 150 mL/hr, administered: 01/14/2017 3:29:00 AM Levofloxacin [IVPB] IVPB bolus 0, then 500 mg 100 mL/hr, administered: 01/14/2017 3:35:00 AM The following Medications were prescribed to the patient: None.
--- NOTE | 2017-01-14 06:42 | ED MAR SUMMARY ---
..... Medication Administration Record [facility] [address] [place] [address] Patient: ADRIAN MEJIAS Visit ID: [id number] 41y, F Weight: 61.2 kg Height/Length: 64 in BMI: 23.2 ALLERGIES: Celexa, PCN Given 01:13 01/14/2017 Lavern Bacon R.N. Medication Administered: TORADOL [IVP], Dose: 30 mg IVP over 2 minute(s), Site: #1 right AC. Medication Ordered: Toradol IV 30 mg (NOW). Start 01:01/14/2017 Lavern Bacon R.N. Medication Administered: IV NS (SALINE), Dose: IV Fluids, Bolus: 1000 mL wide open, Dispensed: 1000 mL bag, Site: #1 right AC. Medication Ordered: IV NS : initial bolus none -, then 1000 mL/hr for X1 (NOW). Given 01:01/14/2017 Lavern Bacon R.N. Medication Administered: ZOFRAN [IVP] (ONDANSETRON HCL), Dose: 4 mg IVP over 2 minute(s), Site: #1 right AC. Medication Ordered: Zofran IV 4 mg (NOW). Given 01:35 01/14/2017 Lavern Bacon R.N. Medication Administered: FAMOTIDINE [IVP], Dose: 20 mg IVP over 30 minute(s), Site: #1 right AC. Medication Ordered: Famotidine IV 20 mg/50mL (NOW). Given 02:43 01/14/2017 Lavern Bacon R.N. Medication Administered: DEMEROL [IVP] (MEPERIDINE HCL), Dose: 25 mg IVP over 2 minute(s), Site: #1 right AC. Medication Ordered: Demerol IV 25 mg (HIGH ALERT MEDICATION, NOW). Start 03:29 01/14/2017 Lavern Bacon R.N. Medication Administered: IV LACTATED RINGERS, Dose: IV Fluids over 6 hour(s), Rate: 150 mL/hr, Dispensed: 1000 mL bag, Site: #1 right AC. Medication Ordered: IV Lactated Ringers : initial bolus none -, then 150 mL/hr (NOW). Start 03:35 01/14/2017 Lavern Bacon R.N. Medication Administered: LEVOFLOXACIN [IVPB], Dose: 500 mg IVPB over 1 hour(s), Rate: 100 mL/hr, Dispensed: 100 mL bag, Site: #1 right AC. Medication Ordered: Levofloxacin IV 500 mg/100mL (NOW).
--- NOTE | 2017-01-14 06:42 | ED DISCHARGE INSTRUCTIONS ---
Patient: ADRIAN MEJIAS General Instructions [facility] VisitID: [id number] [address] [place] [address] 41y, F Registration Date/Time: 01/14/2017 Acute cholecystitis with cholelithiasis. No obstruction or pancreatitis. INSTRUCTIONS Follow-up: Screening today revealed the patient's blood pressure to be in the hypertensive range. The patient was admitted and blood pressure will be managed during the admission. (Electronically signed by Rangel Austin Dr. 01/14/2017 3:54)
--- NOTE | 2017-01-14 06:42 | ED MAR SUMMARY ---
..... Medication Administration Record [address] [place] [address] Patient: ADRIAN MEJIAS Visit ID: [id number] 41y, F Weight: 61.2 kg Height/Length: 64 in BMI: 23.2 ALLERGIES: Celexa, PCN Given 01:13 01/14/2017 Lavern Bacon R.N. Medication Administered: TORADOL [IVP], Dose: 30 mg IVP over 2 minute(s), Site: #1 right AC. Medication Ordered: Toradol IV 30 mg (NOW). Start 01:01/14/2017 Lavern Bacon R.N. Medication Administered: IV NS (SALINE), Dose: IV Fluids, Bolus: 1000 mL wide open, Dispensed: 1000 mL bag, Site: #1 right AC. Medication Ordered: IV NS : initial bolus none -, then 1000 mL/hr for X1 (NOW). Given 01:01/14/2017 Lavern Bacon R.N. Medication Administered: ZOFRAN [IVP] (ONDANSETRON HCL), Dose: 4 mg IVP over 2 minute(s), Site: #1 right AC. Medication Ordered: Zofran IV 4 mg (NOW). Given 01:35 01/14/2017 Lavern Bacon R.N. Medication Administered: FAMOTIDINE [IVP], Dose: 20 mg IVP over 30 minute(s), Site: #1 right AC. Medication Ordered: Famotidine IV 20 mg/50mL (NOW). Given 02:43 01/14/2017 Lavern Bacon R.N. Medication Administered: DEMEROL [IVP] (MEPERIDINE HCL), Dose: 25 mg IVP over 2 minute(s), Site: #1 right AC. Medication Ordered: Demerol IV 25 mg (HIGH ALERT MEDICATION, NOW). Start 03:29 01/14/2017 Lavern Bacon R.N. Medication Administered: IV LACTATED RINGERS, Dose: IV Fluids over 6 hour(s), Rate: 150 mL/hr, Dispensed: 1000 mL bag, Site: #1 right AC. Medication Ordered: IV Lactated Ringers : initial bolus none -, then 150 mL/hr (NOW). Start 03:35 01/14/2017 Lavern Bacon R.N. Medication Administered: LEVOFLOXACIN [IVPB], Dose: 500 mg IVPB over 1 hour(s), Rate: 100 mL/hr, Dispensed: 100 mL bag, Site: #1 right AC. Medication Ordered: Levofloxacin IV 500 mg/100mL (NOW).
--- NOTE | 2017-01-14 06:49 | Progress Note ---
Subjective General abdominal pain controlled, no fever or chills, had BM yesterday, no nausea or vomiting, no cp or dyspnea, surgery on case Physical Exam Vital Signs / I&Os Vital Signs Date Time Temp Pulse Resp B/P Pulse O2 O2 Flow FiO2 Ox Delivery Rate 01/14 0429 98.1 89 16 118/81 98 Room Air General Appearance No acute distress Lungs Clear to auscultation Neck Supple Cardiovascular Regular rate and rhythm, Normal S1 and S2, No murmurs, gallops, rubs Abdomen Soft, No tenderness (BS is hypoactive) Skin No Rashes Psych/Mental Status Mental status normal LAB Results Laboratory Tests 01/14 0125 Chemistry Plasma Sodium (136 - 145 mmol/L) 140 Plasma Potassium (3.5 - 5.1 mmol/L) 3.5 Plasma Chloride (98 - 107 mmol/L) 103 CO2 (Enzymatic) (21 - 32 mmol/L) 27 BUN (7 - 18 mg/dL) 14 Creatinine (0.6 - 1.3 mg/dL) 1.1 Est GFR ( Amer) (mL/min) >60 Est GFR (Non-Af Amer) (mL/min) 58.47 Glucose (70 - 110 mg/dL) 192 Plasma Calcium (8.5 - 10.1 mg/dL) 8.3 Total Bilirubin (0.0 - 1.0 mg/dL) 0.3 AST (15 - 37 U/L) 14 ALT (12 - 78 U/L) 28 Alkaline Phosphatase (46 - 116 U/L) 75 Total Protein (6.4 - 8.2 g/dL) 7.2 Albumin (3.3 - 5.0 g/dL) 3.2 Amylase (25 - 115 U/L) 55 Lipase (73 - 393 U/L) 108 Hematology WBC (4.5 - 11.5 K/uL) 11.4 RBC (4.00 - 5.20 M/uL) 4.11 Hgb (12.0 - 16.0 gm/dL) 13.5 Hct (36.0 - 46.0 %) 39.2 MCV (80 - 100 fL) 96 MCH (26 - 34 pg) 33 RDW (11.6 - 14.8 %) 12.6 Neut % (Auto) (50 - 75 %) 71.9 Lymph % (Auto) (25 - 40 %) 19.4 [place] % (Auto) (3 - 14 %) 6.2 Eos % (Auto) (0 - 4 %) 2.2 Baso % (Auto) (0 - 2 %) 0.3 Plt Count, EDTA (150 - 400 K/uL) 271 PUBS MCHC (31 - 37 g/dL) 34 Assessment and Plan Problem List 1. DM (diabetes mellitus) Plan will sart metformin but hold glipizied since patient is NPO, monitor Blood sugar 2. HTN (hypertension) Plan will sart lisinopril and metoprolol 3. Acute cholecystitis Plan continue abx.s plan for surgery
--- NOTE | 2017-01-14 06:50 | HISTORY AND PHYSICAL ---
ADMITTED: 01/14/2017 CHIEF COMPLAINT: 1. Severe mid back pain 2. Nausea HISTORY OF PRESENT ILLNESS: The patient is a 41-year-old woman who has a long history of episodes of mid back pain followed by nausea and vomiting. These symptoms started actually on Thursday, and she was seen initially in the emergency department and did not really have a definite diagnosis. She was sent home. When she got home, she seemed to worsen. Around 10 p.m. the pain became extreme in the mid back area, radiating up and down the back and this was shortly thereafter followed by severe nausea and vomiting. She came back to the emergency department. In the course of her evaluation, she had a CT scan, which showed emphysematous acute cholecystitis and cholelithiasis, and this could be the cause of her problems. She has been admitted. Dr. Gay has been advised of her problems. MEDICAL/SURGICAL HISTORY: Past medical history: Remarkable for gestational diabetes, which progressed to adult onset diabetes. She also has had problems with hypertension, hyperlipidemia, bipolar disorder, and depression issues. She has been on a number of medicines in the past and currently is not on any medications. She has not taken anything for her diabetes, blood pressure, or cholesterol for the last year or so. Past surgical history is remarkable for spontaneous vaginal deliveries x2, then x2 with a tubal ligation-fulguration done with her second section. She also has had a tonsillectomy in the past. MEDICATIONS: 1.has had Rx's for metformin, lisinopril, statin med antidepressant med but has not been taking any of these for several months. ALLERGIES: 1. PENICILLIN. 2. CELEXA. SOCIAL HISTORY: Indicates the patient is apparently living with her to middle children, ages 15 and 18. She does smoke about 1/2 pack per day. She does not drink alcohol. She uses marijuana about once per month. FAMILY HISTORY: Remarkable for her mother who is alive and well. The patient's father at age 64 of an acute myocardial. He also had problems with alcohol abuse. The patient has a 46-year-old sister who has multiple sclerosis. She has a son who has autism. He is 15 years old. REVIEW OF SYSTEMS: HEENT is okay. Respiratory is okay with no major coughing or wheezing. Cardiovascular is okay, though she does say she has had problems with rapid heart rate in the past. Gastrointestinal is as noted above. She did have some loose stools yesterday with no blood in stools. She relates that her last menstrual was 12/22/2016. Musculoskeletal is okay with no major problems currently. Neurologic is okay with no focal numbness or weakness. Skin has okay with no rashes or lesions. Psychiatric is remarkable for some anxiety and bipolar issues. PHYSICAL EXAMINATION: GENERAL: Reveals the patient to be a young lady who appears somewhat older than her stated age. VITAL SIGNS: Blood pressure initially in the emergency room was 169/109. On admit to the floor, her blood pressure is down to 118/81. Temperature is 98. Pulse is in the 60s currently. She is in no severe distress. HEENT: Head is normal. Ear canals and tympanic membranes are normal. Eyes show flat disks, normal vessels. Extraocular movements are normal. There is no icterus. Mouth shows some missing teeth. NECK: Supple without significant adenopathy. CHEST: Clear to auscultation and percussion. There is no wheezing. HEART: Reveals normal S1 and S2 with a grade 1/6 systolic murmur. BREASTS: Show no masses. There is no axillary adenopathy. ABDOMEN: Nondistended. There is no particular tenderness and no significant tenderness in the right upper quadrant. Bowel tones are normal. PELVIC: Not done. RECTAL: Not done. EXTREMITIES: Show normal range of motion with no significant edema. Peripheral pulses normal. NEUROLOGIC: Reveals the patient to be alert and oriented x3. Cranial nerves are symmetric. Motor and sensory exams are normal. LAB/IMAGING: Show white blood cell count 11,400, hemoglobin is 13.5, hematocrit is 39.2. Sodium is 140, potassium 3.5, chloride 103, CO2 27, glucose 192, creatinine 1.1, BUN is 19. Total bilirubin is 0.3. SGOT is 14, SGPT is 28. Lipase is 108. Amylase is 55. The CT scan showing acute some emphysematous cholecystitis and cholelithiasis. Portions of chest seen on the CT scan are normal. IMPRESSION: 1. The patient is presenting with acute cholecystitis, manifests by back pain, more so than abdominal pain. She is certainly a candidate to have her gallbladder removed. She seems to be medically stable at this point. PLAN: The patient is admitted in anticipation of a surgical consult from Dr. Gay in anticipation of proceeding with cholecystectomy. She has been given levofloxacin intravenously and metronidazole intravenously at the direction of Dr. Gay. She will be started on sliding scale insulin at low-dose. She will have blood pressure followed. She will have hemoglobin A1c and cholesterol profile checked tomorrow. Blood pressure will be followed. Heart rhythm will be followed clinically.
[2017-01-14 07:29] VITALS: BP 109/67
--- NOTE | 2017-01-14 08:38 | CONSULTATION REPORT ---
DATE OF CONSULTATION: 01/14/2017 REFERRING PROVIDER: Dr. Landers. CHIEF COMPLAINT: 1. Severe mid back pain HISTORY OF PRESENT ILLNESS: The patient is a 41-year-old woman who had a history of episodic mid back pain associated with nausea and vomiting. In this case, she presented with severe pain which started on Thursday, that is yesterday, and has persisted overnight. She came to the emergency department when the pain would get better. She had nausea and vomiting associated with this. In the emergency department, she was found to have acute cholecystitis and cholelithiasis. This morning she reports that the pain has pretty much gone. When she is on pain medication, she feels really quite good as long as she is medicated. MEDICAL/SURGICAL HISTORY: Past medical history: Gestational diabetes and now adult-onset diabetes mellitus, hypertension, hyperlipidemia, bipolar disorder, depression, she is not currently diabetic or blood pressure medications and not on cholesterol medications. Past surgical history, x2 with tubal ligation on the second delivery. She has had a tonsillectomy. The patient has x2 also. MEDICATIONS: 1. None noted in chart. ALLERGIES: 1. CITALOPRAM. 2. CELEXA 3. PENICILLIN. SOCIAL HISTORY: The patient is living with her children. She smokes a half pack per day of cigarettes. Does not drink alcohol. She uses cannabis occasionally. FAMILY HISTORY: Mother is alive and well. Father at 64 from an acute myocardial infarction. He also had a problem with alcohol abuse. Her sister has multiple sclerosis. Her son has autism. REVIEW OF SYSTEMS: A multipoint review of systems was obtained by Dr. Landers on admission and is reviewed at this time. PHYSICAL EXAMINATION: GENERAL: The patient is alert and cooperative and responds to exam. She was first seen taking care of things and then went back to bed and did not appear to be in acute distress. VITAL SIGNS: The patient is afebrile, vital signs are stable. HEENT: Ears and nose without gross external lesions. Eyes are equal. She is anicteric. NECK: Without palpable masses. CHEST: Clear to auscultation. HEART: Regular, without murmur or gallop. ABDOMEN: Surprisingly soft to palpation. She indicates some vague discomfort in the upper abdomen, mostly radiating through to the back. At this time, I detected very little in the way of guarding, or organomegaly, though the patient has had some pain medication. She reports the pain seems to be worse when her pain medicines wear off. EXTREMITIES: Symmetric. She moves without restriction. LAB/IMAGING: White blood count 11.4, hemoglobin and hematocrit 13.5 and 39.2. bilirubin 1.3. Liver enzymes normal. Lipase and amylase are normal. CT scan shows acute cholecystitis and cholelithiasis with a mention of emphysematous cholecystitis. IMPRESSION: 1. Acute cholecystitis. PLAN: I recommend that the patient be treated with antibiotics and undergo a laparoscopic cholecystectomy at the next available time. Interestingly the CT scan report is more worse than the patient's clinical picture. Review of the actual CT report contrary to verbal report given last night, says that she has mild distention of the gallbladder with sludge, cholelithiasis and small intraluminal lucencies which may represent cholesterol stones ("emphysematous cholecystitis seems less likely as there was no wall edema or wall thickening"). I explained to the patient the nature of this operation as well as alternatives, benefits and risks. I talked about the potential for common duct stones and postoperative pancreatitis. She would like to proceed as described.
[2017-01-14 10:56] VITALS: BP 95/60
[2017-01-14 14:38] VITALS: BP 95/67
[2017-01-14 18:09] VITALS: BP 94/69
[2017-01-14 22:01] VITALS: BP 107/74
[2017-01-15] VITALS (8 sets, daily range): BP systolic 110–127; BP diastolic 69–88
--- NOTE | 2017-01-15 06:24 | Progress Note ---
Subjective General The patient is a 41-year-old woman who has a long history of episodes of mid back pain followed by nausea and vomiting. These symptoms started actually on Thursday, and she was seen initially in the emergency department and did not really have a definite diagnosis. She was sent home. When she got home, she seemed to worsen. Around 10 p.m. the pain became extreme in the mid back area, radiating up and down the back and this was shortly thereafter followed by severe nausea and vomiting. She came back to the emergency department. In the course of her evaluation, she had a CT scan, which showed emphysematous acute cholecystitis and cholelithiasis, and this could be the cause of her problems. She has been admitted. Dr. Gay has been advised of her problems. Pain controlled with pain meds, no fever or chills, no dyspnea or cp, no nausea or vomiting, no BM since yesterday Review of system: Respiratory system: No dyspnea or chest pain GI: No nausea no vomiting no bowel movement since yesterday Constitutional: No fever no chills Physical Exam Vital Signs / I&Os Vital Signs Date Time Temp Pulse Resp B/P Pulse O2 O2 Flow FiO2 Ox Delivery Rate 01/15 0425 98.4 65 14 120/88 98 Room Air 01/14 2201 98.2 76 16 107/74 100 Room Air 01/14 1809 98.2 79 18 94/69 99 Room Air 01/14 1438 98.2 76 18 95/67 100 Room Air 01/14 1056 98.2 83 18 95/60 99 Room Air 01/14 0729 97.9 84 18 109/67 98 Room Air I&O 01/15 0000 01/14 1600 01/14 0800 Intake Total 480 2449 191 Output Total 500 200 300 Balance -20 2249 -109 General Appearance No acute distress Lungs Clear to auscultation Neck Supple Cardiovascular Regular rate and rhythm, Normal S1 and S2, No murmurs, gallops, rubs Abdomen Soft, hypoactive BS, mild tenderness in RUQ Skin No Rashes Psych/Mental Status Mental status normal LAB Results Laboratory Tests 01/15 01/15 01/15 0418 0418 0418 Chemistry Plasma Sodium (136 - 145 mmol/L) 140 Plasma Potassium (3.5 - 5.1 mmol/L) 3.6 Plasma Chloride (98 - 107 mmol/L) 107 CO2 (Enzymatic) (21 - 32 mmol/L) 25 BUN (7 - 18 mg/dL) 5 Creatinine (0.6 - 1.3 mg/dL) 0.7 Est GFR ( Amer) (mL/min) >60 Est GFR (Non-Af Amer) (mL/min) >60 Glucose (70 - 110 mg/dL) 131 Hemoglobin A1c % (4.5 - 6.2 %) 6.1 Plasma Calcium (8.5 - 10.1 mg/dL) 7.4 Plasma Magnesium (1.8 - 2.4 mg/dL) 1.7 Total Bilirubin (0.0 - 1.0 mg/dL) 0.3 Direct Bilirubin (0 - 0.3 mg/dL) < 0.1 AST (15 - 37 U/L) 13 ALT (12 - 78 U/L) 21 Alkaline Phosphatase (46 - 116 U/L) 56 Total Protein (6.4 - 8.2 g/dL) 5.0 Albumin (3.3 - 5.0 g/dL) 2.3 Triglycerides (30 - 200 mg/dL) 96 Cholesterol (140 - 200 mg/dL) 149 LDL Cholesterol, Calc (mg/dL) 90 HDL Cholesterol (32 - 96 mg/dL) 40 LDL/HDL Ratio 2.3 Cholesterol/HDL Ratio 3.7 Coronary Risk Interp (0.4 - 1.0) 0.8 Amylase (25 - 115 U/L) 47 Lipase (73 - 393 U/L) 208 Hematology WBC (4.5 - 11.5 K/uL) 7.1 RBC (4.00 - 5.20 M/uL) 3.26 Hgb (12.0 - 16.0 gm/dL) 10.7 Hct (36.0 - 46.0 %) 31.4 MCV (80 - 100 fL) 96 MCH (26 - 34 pg) 33 RDW (11.6 - 14.8 %) 12.4 Neut % (Auto) (50 - 75 %) 57.6 Lymph % (Auto) (25 - 40 %) 29.2 [place] % (Auto) (3 - 14 %) 9.6 Eos % (Auto) (0 - 4 %) 3.2 Baso % (Auto) (0 - 2 %) 0.4 Plt Count, EDTA (150 - 400 K/uL) 184 PUBS MCHC (31 - 37 g/dL) 34 Assessment and Plan Problem List 1. Acute cholecystitis Plan continue abx's, plan to have surgery todaly 2. HTN (hypertension) Plan controlled continue current meds 3. DM (diabetes mellitus) Plan controlled Hga1c is 6.1, contineu current meds
--- NOTE | 2017-01-15 13:49 | DIAGNOSTIC IMAGING REPORT ---
PROCEDURE: XR INTRAOPERATIVE LAP RANDAL INDICATION: IOC TECHNIQUE: Intraoperative fluoroscopy provided for Dr. Mason performing an intraoperative cholangiogram following cholecystectomy. Total fluoroscopy time 0.5 minutes Cumulative dose 1.5 mGy. COMPARISON: None. FINDINGS: One intraoperative fluoroscopic spot images of the right upper quadrant of the abdomen demonstrate cannulation of the cystic duct stump and opacification of the intrahepatic and extrahepatic biliary tree. There are no filling defects. There is normal passage of contrast into the duodenum. IMPRESSION: 1. Negative intraoperative cholangiogram.
--- NOTE | 2017-01-15 14:13 | Provider's Discharge Care Plan ---
Problem, Goal, Plan Problem List 1. Acute cholecystitis
--- NOTE | 2017-01-15 14:13 | Provider's Discharge Care Plan ---
Problem, Goal, Plan Problem List 1. Acute cholecystitis
[2017-01-15] MEDS ORDERED: NORCO1 TA1 PO (14:16)
--- NOTE | 2017-01-15 14:17 | Provider's Discharge Care Plan ---
Problem, Goal, Plan Problem List 1. Acute cholecystitis
--- NOTE | 2017-01-15 14:17 | Provider's Discharge Care Plan ---
Problem, Goal, Plan Problem List 1. Acute cholecystitis
[2017-01-15] MEDS ORDERED: ZOFRAN ODT4 MG PO (14:21)
--- NOTE | 2017-01-15 14:39 | OPERATIVE REPORT ---
DATE OF SURGERY: 01/15/2017 SURGEON: Julius Gay MD PREOPERATIVE DIAGNOSIS: 1. Acute cholecystitis POSTOPERATIVE DIAGNOSIS: 1. Cholelithiasis with acute and chronic cholecystitis PROCEDURE PERFORMED: 1. Laparoscopic cholecystectomy with cholangiography ANESTHESIA: General. INDICATIONS: The patient is a 41-year-old woman presenting with back pain and CT evidence of acute cholecystitis. SURGICAL TECHNIQUE: The patient was taken to the operating room, where a general anesthetic was administered and the patient prepped and draped in the usual sterile fashion. A local anesthetic of 0.5% Marcaine with epinephrine was used at each incision site. An intraumbilical incision was made and a Veress needle used to insufflate the abdominal cavity. A 10 mm cannula was passed and visualization was obtained. Three additional cannulas were placed in the usual location. There were adhesions to the gallbladder anteriorly with omentum and the gallbladder was thick walled and mildly edematous. The omentum was stripped away with blunt and electrocautery dissection and the cystic duct dissected at the neck of the gallbladder. The cystic artery was also isolated, clipped and a clip placed at the neck of the gallbladder. A fluoroscopic cholangiogram was carried out demonstrating free flow into the duodenum. The neck of the gallbladder contained tight valves and the cystic duct was dissected further down before the cholangiogram catheter passed freely and with free clear return of bile. The cholangiogram demonstrated no further abnormalities and was then withdrawn. The cystic duct was doubly clipped and divided. The gallbladder was stripped from the gallbladder fossa using electrocautery and delivered to the upper midline trocar site where it was emptied of numerous stones using a Herbert forceps. The emptied gallbladder was slipped out and submitted for histopathology. Irrigation was used in the gallbladder bed which was now found to be hemostatic. After suctioning away all fluid and blood, a local anesthetic was instilled, gas was evacuated, and the midline trocar sites closed at the skin with interrupted subcuticular 4-0 Vicryl suture. Steri-Strips and dressings were placed at all sites and the patient left in good condition. No intraoperative complications were encountered.
== END 2017-01-15 20:10 | disposition home or self-care (01) ==
LOC: ED SRH 00:44 → TRANS SRH 03:26 → CC SRH 03:26
PROVIDERS: Surgery; ADMIT Family Medicine
PROC: 0FT44ZZ Resection of Gallbladder, Percutaneous Endoscopic Approach (ICD-10-PCS; principal; 2017-01-15 10:45)
PROC: BF101ZZ Fluoroscopy of Bile Ducts using Low Osmolar Contrast (ICD-10-PCS; principal; 2017-01-15 10:45)
DX: K80.12 Calculus of gallbladder with acute and chronic cholecystitis without obstruction (principal); E11.9 Type 2 diabetes mellitus without complications; I10 Essential (primary) hypertension; F17.210 Nicotine dependence, cigarettes, uncomplicated; E78.5 Hyperlipidemia, unspecified; F31.9 Bipolar disorder, unspecified
CPT/HCPCS: 29229; 29253; 29259; 29264; 50002; 60001; 70002; 80102; 80248; 81238; 82790; 82794; 82807; 83339; 83348; 83432; 83587; 83920; 83937; 83982; 84038; 90047; 90074; 90098; 90100; 91286; 91672; 92132; 92235; 92530; 92690; 92710; 92720; 93070; 95059

== ENCOUNTER 2017-02-05 01:53 | Emergency (ER) | payer OTHER ==
[~2017-02-05 01:53] MED LIST: NORCO1 TA1 PO; ZOFRAN ODT4 MG PO
--- NOTE | 2017-02-05 03:34 | ED CLINICAL REPORT ---
Clinical Report - Physicians/Mid Levels [facility] [address] [place] [place] [address] 02/05/2017 1:54 Patient: ADRIAN MEJIAS Time Seen: 01:56. Arrived- By ambulance. Historian- patient and EMS personnel. HISTORY OF PRESENT ILLNESS Chief Complaint: DIZZINESS. Described as feeling light-headed, faint and weak all over. Severity described as severe at its maximum. When seen in the E.D., severity described as severe. This started last night. It has been intermittent and waxing/waning. The patient has had nausea. She has had mild vomiting. The vomiting has occurred only once. No blood-tinged emesis, coffee-grounds emesis or frankly bloody emesis. REVIEW OF SYSTEMS Last normal menstrual period- January 19. She has had a subjective fever, chills and hesitancy and experienced sweats. No calf pain, chest pain, cough, difficulty breathing or pedal edema. No palpitations, black stools, bloody stools or constipation. She has had mild loose stools (chronically). All systems otherwise negative, except as recorded above. PAST HISTORY ( PCP - None). Problems: Cholecystitis. Gastroenteritis. Substance Abuse. Viral Disease. Mental Illness. Bipolar Disorder. Anxiety Reaction. Ulna Fracture. Headache. Hyperglycemia. TMJ Syndrome. Cluster Headache. Suicidal Ideation. Hypertension. Depression. Diabetes Mellitus. Dental Pain. Dental Caries. Additional Surgeries: Cholecystectomy []. . Tonsillectomy. Tubal Ligation. Medications: Methadone HCl Oral 50mg, daily, to treat substance abuse, started 02-02-17. Allergies: Celexa. PCN. SOCIAL HISTORY Current every day light tobacco smoker (cigarette)- less than 1/2 a pack per day. History of drug use last used meth 2 weeks ago and heroin in August of this year. No alcohol use. FAMILY HISTORY Diabetes in grandparent; heart disease in first-degree relative (father), grandparent. ADDITIONAL NOTES The nursing notes have been reviewed. PHYSICAL EXAM Vital Signs: 02/05/2017 01:57 BP: 144/92. HR: 125. RR: 15. O2 saturation: 94%. Temp: 99.6 F. Pain level now: 0/10. Appearance: Alert. Eyes: Pupils equal, round and reactive to light. ENT: Pharynx normal. Neck: Normal inspection. Neck supple. CVS: Normal heart rate and rhythm. Heart sounds normal. Respiratory: No respiratory distress. Breath sounds normal. Abdomen: Soft and nontender. No organomegaly. Back: Normal inspection. No CVA tenderness. Skin: Skin warm and dry. Normal skin color. Normal skin turgor. Extremities: Extremities exhibit normal ROM. No calf tenderness. No lower extremity edema. Neuro: Mood/affect normal. No cerebellar findings. No motor deficit. No sensory deficit. LABS, X-RAYS, AND EKG Laboratory Tests: UA-Culture if indicated: (SUGAR: 02/05/2017 02:42) ( [facility] 02/05/2017 02:56) Final results Test Result Flag Units (Reference) URINE COLOR YELLOW URINE APPEARANCE CLEAR URINE GLUCOSE NEGATIVE (NEGATIVE) URINE BILIRUBIN NEGATIVE (NEGATIVE) URINE KETONE NEGATIVE (NEGATIVE) URINE SPECIFIC GRAVITY >= 1.030 (1.010-1.030) URINE PH 5.5 (5.0-8.0) URINE PROTEIN NEGATIVE (NEGATIVE) URINE UROBILINOGEN 0.2 EU/dL (0.2-1.0) URINE NITRITE NEGATIVE (NEGATIVE) URINE BLOOD NEGATIVE (NEGATIVE) URINE LEUK ESTERASE NEGATIVE (NEGATIVE) URINE RBC 0-1 rbc/hpf (0-1) URINE WBC 0-1 wbc/hpf (0-1) URINE EPITHELIAL CELLS 1-3 EPI/hpf (0-5) URINE BACTERIA NONE SEEN (NONE SEEN) URINE COMMENT CULT NOT INDICATED URINE CULTURES ARE SET-UP BASED ON THE FOLLOWING CRITERIA:POSITIVE NITRITEPOSITIVE LEUKOCYTE ESTERASEGREATER THAN 10 WHITE BLOOD CELLSMODERATE (2+) OR GREATER BACTERIA Urine: (SUGAR: 02/05/2017 02:42) ( [facility] 02/05/2017 02:51) Final results Test Result Flag Units (Reference) URINE NEGATIVE CBC w Diff: (SUGAR: 02/05/2017 02:10) ( [facility] [place] 02:18) Final results Test Result Flag Units (Reference) WHITE BLOOD COUNT 12.2 H K/uL (4.5-11.5) RED BLOOD COUNT 3.90 L M/uL (4.00-5.20) HEMOGLOBIN 12.5 gm/dL (12.0-16.0) HEMATOCRIT 37.2 % (36.0-46.0) MEAN CELL VOLUME 95 fL (80-100) MEAN CORPUSCULAR HGB 32 pg (26-34) MEAN CORPUSCULAR HGB CONC 34 g/dL (31-37) RED CELL DISTRIBUTION WIDTH 12.3 % (11.6-14.8) PLATELET COUNT 284 K/uL (150-400) NEUTROPHIL % 78.0 H % (50-75) LYMPH % 14.2 L % (25-40) MONO % 6.2 % (3-14) EOSINOPHIL % 1.4 % (0-4) BASOPHIL % 0.2 % (0-2) Urine Drug Screen: (SUGAR: 02/05/2017 02:42) ( [facility] 02/05/2017 03:00) Final results Test Result Flag Units (Reference) AMPHETAMINE/METHAMPHETAMINE NEGATIVE (NEGATIVE) BARBITURATE NEGATIVE (NEGATIVE) BENZODIAZEPINE NEGATIVE (NEGATIVE) CANNABINOID NEGATIVE (NEGATIVE) COCAINE NEGATIVE (NEGATIVE) ECSTASY NEGATIVE (NEGATIVE) METHADONE POSITIVE H (NEGATIVE) OPIATE NEGATIVE (NEGATIVE) The urine drug screen is a qualitative screening test fordrug overdose and abuse. All screen results should beconsidered as presumptive.Drugs screened for are as follows:BenzodiazepinesCocaineAmphetamines/MetamphetaminesTHC (Tetrahydrocannabinol)OpiatesBarbituratesEcstasyMethadonePositive results are unconfirmed. For confirmation, notifythe lab for the specimen to be sent to the reference lab.All confirmations must be performed by a differentmethodology.The ingestion of natural herbal and plant productscontaining Ephedra/Ephedra metabolites can produce in urineone or more substances capable of cross reacting withamphetamine/methamphetamine immunoassays. These testsprovide a preliminary result only. A more specificalternative chemical method must be used to obtain aconfirmed analytical result. CMP: (SUGAR: 02/05/2017 02:10) ( MsgRcvd 02/05/2017 02:31) Final results Test Result Flag Units (Reference) GLUCOSE 197 H mg/dL (70-110) BUN 13 mg/dL (7-18) CREATININE 0.8 mg/dL (0.6-1.3) Estimated GFR >60 mL/min Estimated GFR- >60 mL/min Note: Persistent reduction over 3 months in eGFR<60 mL/min/1.73 m2 defines CKD. Patients with eGFR values>=60 mL/min/1.73 m2 may also have CKD if evidence ofpersistent proteinuria. Additional information may be foundat www.kidney.org. SODIUM 137 mmol/L (136-145) POTASSIUM 4.0 mmol/L (3.5-5.1) CHLORIDE 100 mmol/L (98-107) CARBON DIOXIDE 28 mmol/L (21-32) CALCIUM 8.2 L mg/dL (8.5-10.1) TOTAL PROTEIN 6.9 g/dL (6.4-8.2) ALBUMIN 3.1 L g/dL (3.3-5.0) BILIRUBIN, TOTAL 0.2 mg/dL (0.0-1.0) ALKALINE PHOSPHATASE 81 U/L (46-116) AST (SGOT) 17 U/L (15-37) ALT (SGPT) 35 U/L (12-78) LIPASE 73 U/L (73-393) AMYLASE 63 U/L (25-115) . PROGRESS AND PROCEDURES Course of Care: Patient is stable. Patient/family counseled. Old medical records reviewed. Disposition: Discharged. Condition: stable. CLINICAL IMPRESSION Dizziness. Mild volume depletion. Acute gastroenteritis. INSTRUCTIONS Drink plenty of fluids. Warnings: Further evaluation is necessary. GENERAL WARNINGS: Return or contact your physician immediately if your condition worsens or changes unexpectedly, if not improving as expected, or if other problems arise. Your Current Medications: CONTINUE TAKING THE FOLLOWING MEDICATIONS: Methadone HCl Oral : 50mg daily, Started: 02-02-17, to treat substance abuse. Prescription Medications: Zofran 4 mg: Take 1 orally every six hours as needed for nausea/vomiting. Dispense ten (10). No refills. Substitution is permissible. Understanding of the discharge instructions verbalized by patient and family. Follow-up with: [facility], , , [address], , [place], [id number] Follow up tomorrow. Call for an appointment. (Electronically signed by Jan Mejia MD 02/05/2017 9:38)
--- NOTE | 2017-02-05 03:34 | ED CLINICAL REPORT ---
Clinical Report - Physicians/Mid Levels [facility] [address] [place] [address] 02/05/2017 1:54 Patient: ADRIAN MEJIAS Time Seen: 01:56. Arrived- By ambulance. Historian- patient and EMS personnel. HISTORY OF PRESENT ILLNESS Chief Complaint: DIZZINESS. Described as feeling light-headed, faint and weak all over. Severity described as severe at its maximum. When seen in the E.D., severity described as severe. This started last night. It has been intermittent and waxing/waning. The patient has had nausea. She has had mild vomiting. The vomiting has occurred only once. No blood-tinged emesis, coffee-grounds emesis or frankly bloody emesis. REVIEW OF SYSTEMS Last normal menstrual period- January 19. She has had a subjective fever, chills and hesitancy and experienced sweats. No calf pain, chest pain, cough, difficulty breathing or pedal edema. No palpitations, black stools, bloody stools or constipation. She has had mild loose stools (chronically). All systems otherwise negative, except as recorded above. PAST HISTORY ( PCP - None). Problems: Cholecystitis. Gastroenteritis. Substance Abuse. Viral Disease. Mental Illness. Bipolar Disorder. Anxiety Reaction. Ulna Fracture. Headache. Hyperglycemia. TMJ Syndrome. Cluster Headache. Suicidal Ideation. Hypertension. Depression. Diabetes Mellitus. Dental Pain. Dental Caries. Additional Surgeries: Cholecystectomy []. . Tonsillectomy. Tubal Ligation. Medications: Methadone HCl Oral 50mg, daily, to treat substance abuse, started 02-02-17. Allergies: Celexa. PCN. SOCIAL HISTORY Current every day light tobacco smoker (cigarette)- less than 1/2 a pack per day. History of drug use last used meth 2 weeks ago and heroin in August of this year. No alcohol use. FAMILY HISTORY Diabetes in grandparent; heart disease in first-degree relative (father), grandparent. ADDITIONAL NOTES The nursing notes have been reviewed. PHYSICAL EXAM Vital Signs: 02/05/2017 01:57 BP: 144/92. HR: 125. RR: 15. O2 saturation: 94%. Temp: 99.6 F. Pain level now: 0/10. Appearance: Alert. Eyes: Pupils equal, round and reactive to light. ENT: Pharynx normal. Neck: Normal inspection. Neck supple. CVS: Normal heart rate and rhythm. Heart sounds normal. Respiratory: No respiratory distress. Breath sounds normal. Abdomen: Soft and nontender. No organomegaly. Back: Normal inspection. No CVA tenderness. Skin: Skin warm and dry. Normal skin color. Normal skin turgor. Extremities: Extremities exhibit normal ROM. No calf tenderness. No lower extremity edema. Neuro: Mood/affect normal. No cerebellar findings. No motor deficit. No sensory deficit. LABS, X-RAYS, AND EKG Laboratory Tests: UA-Culture if indicated: (SUGAR: 02/05/2017 02:42) ( [facility] 02/05/2017 02:56) Final results Test Result Flag Units (Reference) URINE COLOR YELLOW URINE APPEARANCE CLEAR URINE GLUCOSE NEGATIVE (NEGATIVE) URINE BILIRUBIN NEGATIVE (NEGATIVE) URINE KETONE NEGATIVE (NEGATIVE) URINE SPECIFIC GRAVITY >= 1.030 (1.010-1.030) URINE PH 5.5 (5.0-8.0) URINE PROTEIN NEGATIVE (NEGATIVE) URINE UROBILINOGEN 0.2 EU/dL (0.2-1.0) URINE NITRITE NEGATIVE (NEGATIVE) URINE BLOOD NEGATIVE (NEGATIVE) URINE LEUK ESTERASE NEGATIVE (NEGATIVE) URINE RBC 0-1 rbc/hpf (0-1) URINE WBC 0-1 wbc/hpf (0-1) URINE EPITHELIAL CELLS 1-3 EPI/hpf (0-5) URINE BACTERIA NONE SEEN (NONE SEEN) URINE COMMENT CULT NOT INDICATED URINE CULTURES ARE SET-UP BASED ON THE FOLLOWING CRITERIA:POSITIVE NITRITEPOSITIVE LEUKOCYTE ESTERASEGREATER THAN 10 WHITE BLOOD CELLSMODERATE (2+) OR GREATER BACTERIA Urine: (SUGAR: 02/05/2017 02:42) ( [facility] 02/05/2017 02:51) Final results Test Result Flag Units (Reference) URINE NEGATIVE CBC w Diff: (SUGAR: 02/05/2017 02:10) ( [facility] [place] [place] 02:18) Final results Test Result Flag Units (Reference) WHITE BLOOD COUNT 12.2 H K/uL (4.5-11.5) RED BLOOD COUNT 3.90 L M/uL (4.00-5.20) HEMOGLOBIN 12.5 gm/dL (12.0-16.0) HEMATOCRIT 37.2 % (36.0-46.0) MEAN CELL VOLUME 95 fL (80-100) MEAN CORPUSCULAR HGB 32 pg (26-34) MEAN CORPUSCULAR HGB CONC 34 g/dL (31-37) RED CELL DISTRIBUTION WIDTH 12.3 % (11.6-14.8) PLATELET COUNT 284 K/uL (150-400) NEUTROPHIL % 78.0 H % (50-75) LYMPH % 14.2 L % (25-40) MONO % 6.2 % (3-14) EOSINOPHIL % 1.4 % (0-4) BASOPHIL % 0.2 % (0-2) Urine Drug Screen: (SUGAR: 02/05/2017 02:42) ( MsgRcvd 02/05/2017 03:00) Final results Test Result Flag Units (Reference) AMPHETAMINE/METHAMPHETAMINE NEGATIVE (NEGATIVE) BARBITURATE NEGATIVE (NEGATIVE) BENZODIAZEPINE NEGATIVE (NEGATIVE) CANNABINOID NEGATIVE (NEGATIVE) COCAINE NEGATIVE (NEGATIVE) ECSTASY NEGATIVE (NEGATIVE) METHADONE POSITIVE H (NEGATIVE) OPIATE NEGATIVE (NEGATIVE) The urine drug screen is a qualitative screening test fordrug overdose and abuse. All screen results should beconsidered as presumptive.Drugs screened for are as follows:BenzodiazepinesCocaineAmphetamines/MetamphetaminesTHC (Tetrahydrocannabinol)OpiatesBarbituratesEcstasyMethadonePositive results are unconfirmed. For confirmation, notifythe lab for the specimen to be sent to the reference lab.All confirmations must be performed by a differentmethodology.The ingestion of natural herbal and plant productscontaining Ephedra/Ephedra metabolites can produce in urineone or more substances capable of cross reacting withamphetamine/methamphetamine immunoassays. These testsprovide a preliminary result only. A more specificalternative chemical method must be used to obtain aconfirmed analytical result. CMP: (SUGAR: 02/05/2017 02:10) ( MsgRcvd 02/05/2017 02:31) Final results Test Result Flag Units (Reference) GLUCOSE 197 H mg/dL (70-110) BUN 13 mg/dL (7-18) CREATININE 0.8 mg/dL (0.6-1.3) Estimated GFR >60 mL/min Estimated GFR- >60 mL/min Note: Persistent reduction over 3 months in eGFR<60 mL/min/1.73 m2 defines CKD. Patients with eGFR values>=60 mL/min/1.73 m2 may also have CKD if evidence ofpersistent proteinuria. Additional information may be foundat www.kidney.org. SODIUM 137 mmol/L (136-145) POTASSIUM 4.0 mmol/L (3.5-5.1) CHLORIDE 100 mmol/L (98-107) CARBON DIOXIDE 28 mmol/L (21-32) CALCIUM 8.2 L mg/dL (8.5-10.1) TOTAL PROTEIN 6.9 g/dL (6.4-8.2) ALBUMIN 3.1 L g/dL (3.3-5.0) BILIRUBIN, TOTAL 0.2 mg/dL (0.0-1.0) ALKALINE PHOSPHATASE 81 U/L (46-116) AST (SGOT) 17 U/L (15-37) ALT (SGPT) 35 U/L (12-78) LIPASE 73 U/L (73-393) AMYLASE 63 U/L (25-115) . PROGRESS AND PROCEDURES Course of Care: Patient is stable. Patient/family counseled. Old medical records reviewed. Disposition: Discharged. Condition: stable. CLINICAL IMPRESSION Dizziness. Mild volume depletion. Acute gastroenteritis. INSTRUCTIONS Drink plenty of fluids. Warnings: Further evaluation is necessary. GENERAL WARNINGS: Return or contact your physician immediately if your condition worsens or changes unexpectedly, if not improving as expected, or if other problems arise. Your Current Medications: CONTINUE TAKING THE FOLLOWING MEDICATIONS: Methadone HCl Oral : 50mg daily, Started: 02-02-17, to treat substance abuse. Prescription Medications: Zofran 4 mg: Take 1 orally every six hours as needed for nausea/vomiting. Dispense ten (10). No refills. Substitution is permissible. Understanding of the discharge instructions verbalized by patient and family. Follow-up with: [facility], , , [address], , [place], [id number] Follow up tomorrow. Call for an appointment. (Electronically signed by Jan Mejia MD 02/05/2017 9:38)
--- NOTE | 2017-02-05 03:35 | ED ORDER SUMMARY ---
..... Patient: ADRIAN MEJIAS OrderSheet [facility] VisitID: [id number] [place] [address] 41y, F Registration Date/Time: 02/05/2017 ORDER SHEET Weight: 67.1 kg (stated) Allergies: Celexa, PCN GENERAL ORDERS: Vitals - Orthostatic (02:04 02/05/2017 Marcela COOL) (2:20 ALawrence ER Tech1) CBC w Diff Urgent (02:02/05/2017 Marcela COOL) (Ack 2:24 CHagerty ER Reaming Machine Operator For Plastic) (2:29 RCollier R.N.) CMP Urgent (02:02/05/2017 Marcela COOL) (Ack 2:24 CHagbrenden ER Reaming Machine Operator For Plastic) (2:29 RCollier R.N.) UA-Culture if indicated Urgent (02:02/05/2017 Marcela COOL) (Ack 2:24 CHagbrenden ER Reaming Machine Operator For Plastic) (2:54 RCollier R.N.) Amylase Urgent (02:02/05/2017 Marcela COOL) (Ack 2:24 CHagbrenden ER Reaming Machine Operator For Plastic) (2:29 RCollier R.N.) Lipase Urgent (02:02/05/2017 Marcela COOL) (Ack 2:24 Sharon ER Reaming Machine Operator For Plastic) (2:29 RCollier R.N.) Urine Urgent (02:02/05/2017 Marcela COOL) (Ack 2:24 CHagbrenden ER Reaming Machine Operator For Plastic) (2:54 RCollier R.N.) Urine Drug Screen Urgent (02:02/05/2017 Marcela COOL) (Ack 2:24 CHagbrenden ER Reaming Machine Operator For Plastic) (2:54 RCollier R.N.) MEDICATION ORDERS: IV FLUIDS: IV Saline Lock (02:02/05/2017 Marcela COOL) (Ack 2:07 RCollier R.N.) (3:38 JSanders R.N.) IV NS : initial bolus 500 mL (1000 mL/hr), then 125 mL/hr for 4h (NOW); Urgent (02:36 02/05/2017 Marcela COOL) (Ack 2:49 RCollier R.N.) (2:54 RCollier R.N.) ORDER SHEET NOTES: [Electronically signed by Megan Vaca R.N. (04:20 02/05/2017)] [Electronically signed by Jan Mejia MD (09:38 02/05/2017)] [Electronically locked/signed by Megan Vaca R.N. (04:20 02/05/2017)]
--- NOTE | 2017-02-05 03:35 | ED ORDER SUMMARY ---
..... Patient: ADRIAN MEJIAS OrderSheet [facility] VisitID: [id number] [place] [address] 41y, F Registration Date/Time: 02/05/2017 ORDER SHEET Weight: 67.1 kg (stated) Allergies: Celexa, PCN GENERAL ORDERS: Vitals - Orthostatic (02:04 02/05/2017 Marcela COOL) (2:20 ALawrence ER Tech1) CBC w Diff Urgent (02:02/05/2017 Marcela COOL) (Ack 2:24 CHagerty ER Game Agent) (2:29 RCollier R.N.) CMP Urgent (02:02/05/2017 Marcela COOL) (Ack 2:24 CHagbrenden ER Game Agent) (2:29 RCollier R.N.) UA-Culture if indicated Urgent (02:02/05/2017 Marcela COOL) (Ack 2:24 CHagbrenedn ER Game Agent) (2:54 RCollier R.N.) Amylase Urgent (02:02/05/2017 Marcela COOL) (Ack 2:24 CHagbrenden ER Game Agent) (2:29 RCollier R.N.) Lipase Urgent (02:02/05/2017 Marcela COOL) (Ack 2:24 Sharon ER Game Agent) (2:29 RCollier R.N.) Urine Urgent (02:02/05/2017 Marcela COOL) (Ack 2:24 CHagbrenden ER Game Agent) (2:54 RCollier R.N.) Urine Drug Screen Urgent (02:02/05/2017 Marcela COOL) (Ack 2:24 CHagbrenden ER Game Agent) (2:54 RCollier R.N.) MEDICATION ORDERS: IV FLUIDS: IV Saline Lock (02:02/05/2017 Marcela COOL) (Ack 2:07 RCollier R.N.) (3:38 JSanders R.N.) IV NS : initial bolus 500 mL (1000 mL/hr), then 125 mL/hr for 4h (NOW); Urgent (02:36 02/05/2017 Marcela COOL) (Ack 2:49 RCollier R.N.) (2:54 RCollier R.N.) ORDER SHEET NOTES: [Electronically signed by Megan Vaca R.N. (04:20 02/05/2017)] [Electronically signed by Jan Mejia MD (09:38 02/05/2017)] [Electronically locked/signed by Megan Vaca R.N. (04:20 02/05/2017)]
--- NOTE | 2017-02-05 03:35 | ED NURSING NOTES ---
Clinical Report - Nurses [facility] [address] [place] [address] 02/05/2017 1:54 Patient: ADRIAN MEJIAS TRIAGE Triage time 01:57. Chief Complaint: DIZZINESS and NAUSEA (feeling like she might "pass out"). Alert. No acute distress. --02:03 Shavon Monroy R.N. 01:57 02/05/17. BP: 144/92. HR: 125. RR: 15. O2 saturation: 94% on room air. Temp: 99.6 F (oral). Pain level now: 0/10. --02:03 Shavon Monroy R.N. Acuity: LEVEL 4. --02:03 Shavon Monroy R.N. Weight: 67.1 kg stated. Height/Length: 64.5 inches Per Patient. BMI: 25. --01:59 Shavon Monroy R.N. Medications Methadone HCl Oral 50mg, daily, to treat substance abuse, started 02-02-17. --01:59 Shavon Monroy R.N. The following entry was struck and corrected by Shavon Monroy R.N., 02:07 (02/05/17) Reason for correction - other(correction). <<STRICKEN ENTRY-- Methadone HCl Oral 50mg, daily. --01:59 Shavon Monroy R.N. --END STRIKE>>. Allergies Celexa. PCN. --01:59 Shavon Monroy R.N. History Arrived by EMS. Historian: patient. Accompanied by spouse. Primary physician (None). This started today. Onset. (at about 0100). PAST MEDICAL HX: Immunizations: up-to-date. SOCIAL HX: Heavy tobacco smoker (cigarette)- less than 1 pack per day. Never smoker. 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 (last use about 2 weeks ago). No alcohol use. NUTRITIONAL RISK ASSESSMENT: The nutritional risk assessment revealed no deficiencies. FUNCTIONAL ASSESSMENT: Functional assessment: no impairments noted. --02:03 Shavon Monroy R.N. ( pt reports increased reflux with foul smelling burps and frequent "hick-ups"). --02:05 Shavon Monroy R.N. ADDITIONAL SURGERIES: Cholecystectomy []. . Tonsillectomy. Tubal Ligation. --02:00 Shavon Monroy R.N. Interventions ID band on patient. To treatment room. --02:03 Shavon Monroy R.N. PHYSICAL ASSESSMENT To room via stretcher. Patient gowned. GENERAL / NEURO / PSYCH: Alert. Oriented X 4. Appears in no acute distress. HEENT: Mucous membranes are pink. RESPIRATORY: Respirations not labored. CVS: Capillary refill less than 2 seconds. SKIN: Skin is warm and dry. --02:03 Shavon Monroy R.N. NURSING PROGRESS NOTES Head of bed elevated. Two patient identifiers checked. Call light placed in reach. Side rails up x 1. Bed placed in lowest position. Brakes of bed on. --02:04 Shavon Monroy R.N. 02:00 02/05/2017 Site #1 started prior to arrival by EMS via IV in the left antecubital space with an 20g angiocath; one attempt. Saline lock flushed with 10 mL saline. --02:05 Shavon Monroy R.N. Patient ID band checked for patient name and birthdate: patient confirmed. Blood samples drawn from the left antecubital space peripheral IV site (prior to IV fluid start) with syringe by nurse per protocol ; labeled in presence of the patient and sent to lab: rainbow set. Initial blood discarded and additional blood sent to lab. Line flushed with 10 mL normal saline post blood draw. --02:15 Shavon Monroy R.N. 8 fr in/out catheterization. During procedure hand hygiene observed and sterile equipment and aseptic technique used. Return of less than 50 mL yellow-colored clear urine. She tolerated procedure well. Patient ID band checked for patient name and birthdate: patient confirmed. Catheterized urine collected with return of yellow-colored clear urine; sample sent to lab. Specimen labeled in the presence of the patient. --02:49 Shavon Monroy R.N. 02:51 02/05/2017 Started bag #1 1000 mL IV Fluids IV NS (Saline); bolus of 500 mL over 30 minute(s) then at 125 mL/hr via site #1 via IV pump. Allergies verified and confirmed 5 rights. IV patency established. IV site checked: no pain, redness, or swelling. IV flushed thoroughly pre- and post-medication administration. --02:54 Shavon Monroy R.N. 03:08 02/05/17. BP: 117/84. HR: 118. RR: 16. O2 saturation: 98% on room air. --03:08 Shavon Monroy R.N. 03:42 02/05/2017 IV Fluids IV NS via IV site #1 Rate Changed: bag #1 increased to 1000 mL/hr via IV pump. IV patency established. IV site checked: no pain, redness, or swelling. IV flushed thoroughly. Confirmed 5 Rights. --03:42 Megan Vaca R.N. DISPOSITION / DISCHARGE 03:37 02/05/17. BP: 118/77. HR: 120. RR: 16. O2 saturation: 97%. --03:38 Lukas Cartagena, CAROL Director Of Surgery 04:18 02/05/2017 Site #1 removed upon discharge. Bandaid applied. --04:18 Megan Vaca R.N. 04:19 02/05/2017 IV Fluids IV NS Discontinued: bag #1 completed. Total amount infused: 1000 mL. IV patency established. IV site checked: no pain, redness, or swelling. IV flushed thoroughly. --04:19 Megan Vaca R.N. Departure time: 04:Feb 05 2017. Condition at departure: improved. No learning barriers present. Reviewed medication(s) side effects, precautions, dosing and course information. Prescription(s) given to the patient. Patient verbalized understanding. Written instructions provided in Cameroonian. The patient was discharged by the physician. She was discharged home and accompanied by spouse. She left the Emergency Department ambulatory and via private vehicle. Parent driving. --04:19 Megan Vaca R.N. 04:20 02/05/17. Temp: 98.4 F. Pain level now: 0/10. --04:20 Megan Vaca R.N. Locked/Released at 02/05/2017 4:20 by Megan Vaca R.N.
--- NOTE | 2017-02-05 09:38 | ED DISCHARGE INSTRUCTIONS ---
Patient: ADRIAN MEJIAS General Instructions [facility] VisitID: [id number] [address], [place] [address] 41y, F Registration Date/Time: 02/05/2017 Dizziness. Mild volume depletion. Acute gastroenteritis. INSTRUCTIONS Drink plenty of fluids. Warnings: Further evaluation is necessary. GENERAL WARNINGS: Return or contact your physician immediately if your condition worsens or changes unexpectedly, if not improving as expected, or if other problems arise. Your Current Medications: CONTINUE TAKING THE FOLLOWING MEDICATIONS: Methadone HCl Oral : 50mg daily, Started: 02-02-17, to treat substance abuse. Prescription Medications: Zofran 4 mg: Take 1 orally every six hours as needed for nausea/vomiting. Dispense ten (10). No refills. Substitution is permissible. Understanding of the discharge instructions verbalized by patient and family. Follow-up with: [facility], , , [address], , [place], [address] Follow up tomorrow. Call for an appointment. ADDITIONAL INFORMATION Dehydration (Adult) Dehydration occurs when your body loses too much fluid. This may be the result of vomiting a lot or from diarrhea,sweating a lot, or a high fever. It may also happen if you dont drink enough fluid when youre sick. Misuse of diuretics (water pills) can also be a cause. Symptoms include thirst and feeling dizzy, weak, fatigued, or very drowsy. The diet described below is usually enough to treat most cases. Sometimes you may needmedicine. Home Care Follow these guidelines for home care: Drink at least 12 8-ounce glasses of fluid every day to overcome the dehydration. Fluid may include water; orange juice; lemonade; apple, grape, and cranberry juice; clear fruit drinks; electrolyte replacement and sports drinks; and teas and coffee without caffeine. If you have been diagnosed with a kidney disease, ask your doctor how much and what types of fluids you should drink to prevent dehydration. If you have kidney disease, drinking too much fluid can cause it build up in the your body and be dangerous to your health. If you have fever, muscle aching, or headache from a viral syndrome, you may useacetaminophen or ibuprofen, unless another medicine was prescribed for this.If you have chronic liver or kidney disease or ever had a stomach ulcer or GI bleeding, talk with your doctor before using these medicines. Don't take aspirin if you are younger than 18 and are ill with a fever.Aspirin raises the chance forsevere liver injury. Follow-up care Follow up with your health care provider if you don't get better in the next 24 to 48 hours. When to seek medical care Get prompt medical attention if any of theseoccur: Continued vomiting (cant keep liquids down) Frequent diarrhea (more than 5 times a day); blood (red or black color) or mucus in diarrhea Blood in vomit or stool Swollen abdomen or increasing abdominal pain Weakness, dizziness, or fainting Unusually drowsy or confused Reduced urine output or extreme thirst Fever of 100.4 F (38 C) oral or higher that does not get better with fever medication Viral Gastroenteritis (6Yr-Adult) Gastroenteritis is another name for thestomach flu.It is most often caused by a virus that affects the stomach and intestinal tract. Symptoms include stomach cramping and fever, vomiting and/or diarrhea, and can last from 2 to 7 days. The danger from repeated vomiting or diarrhea is dehydration. This is the loss of too much water and minerals from the body. When this occurs, body fluids must be replaced. Antibiotics are not effective for this illness, but simple home treatment will be helpful. Home Care If symptoms are severe, rest at home for the next 24 hours. Avoid tobacco, caffeine, and alcohol use, which can worsen symptoms. Acetaminophen (Tylenol) or ibuprofen (Motrin, Advil) may be usedfor fever or pain unless another medication was prescribed. NOTE: If you have chronic liver or kidney disease or ever had a stomach ulcer or GI bleeding, talk with your doctor before using these medicines. Aspirin should never be used in anyone under 18 years of age who is ill with a fever. It may cause severe liver damage. If medicines for diarrhea or vomiting were prescribed, be sure they are takenonly as directed. If vomiting, drink small amounts of clear fluids (such as water, sports drinks, clear sodas) at frequent intervals to prevent dehydration. Start with 1 to 2 tablespoons every 10 minutes. Once vomiting stops, follow these guidelines: During The First 12 To 24 Hours follow the diet below: Beverages: Sport drinks like Gatorade, soft drinks without caffeine; joseph ophelia, mineral water (plain or flavored), decaffeinated tea and coffee. Soups: Clear broth, consomm and bouillon Desserts: Plain gelatin (Jell-O), Popsicles and fruit juice bars. During The Next 24 Hours you may add the following to the above: Hot cereal, plain toast, bread, rolls, crackers Plain noodles, rice, mashed potatoes, chicken noodle or rice soup Unsweetened canned fruit (avoid pineapple), bananas Limit fat intake to less than 15 grams per day by avoiding margarine, butter, oils, mayonnaise, sauces, gravies, fried foods, peanut butter, meat, poultry, and fish. Limit fiber; avoid raw or cooked vegetables, fresh fruits (except bananas), and bran cereals. Limit caffeine and chocolate. Do not use spices or seasonings except salt. During The Next 24 Hours The patient can gradually resume a normal diet as symptoms lessen. Preventing Spread Hand washing with soap and water is the best way to prevent the spread of viruses. Caregivers should wash their hands before andafter touching the sick person. The sick person, as well as everyone in the family,should wash their hands after using the toilet and before meals. Clean the toilet after each use. People with diarrhea should not prepare food for others. If you are preparing your own foods, wash your hands before and after. Follow Up with your doctor as advised. Call your doctor if you are not improving over the next 2 to 3 days. If a stool (diarrhea) sample was taken, you may call in 2 days (or as directed) for the results. Get Prompt Medical Attention if any of the following occur: Increasing abdominal pain Continued vomiting (unable to keep liquids down) Frequent diarrhea (more than 5 times a day) Blood in vomit or stool (black or red color) Dark urine, reduced urine output, or extreme thirst Weakness, dizziness, fainting Drowsiness, confusion, stiff neck, or seizure Fever of 100.4F (38C) oral or higher, not better with fever medication New rash Ondansetron Hydrochloride Oral tablet What is this medicine? ONDANSETRON (on SLICK se whitney) is used to treat nausea and vomiting caused by chemotherapy. It is also used to prevent or treat nausea and vomiting after surgery. How should I use this medicine? Take this medicine by mouth with a glass of water. Follow the directions on your prescription label. Take your doses at regular intervals. Do not take your medicine more often than directed. Talk to your restaurant hostess regarding the use of this medicine in children. Special care may be needed. What side effects may I notice from receiving this medicine? Side effects that you should report to your doctor or health ocular care aide as soon as possible: allergic reactions like skin rash, itching or hives, swelling of the face, lips or tongue breathing problems dizziness fast or irregular heartbeat feeling faint or lightheaded, falls fever and chills swelling of the hands or feet tightness in the chest Side effects that usually do not require medical attention (report to your doctor or health ocular care aide if they continue or are bothersome): constipation or diarrhea headache What may interact with this medicine? Do not take this medicine with any of the following medications: -apomorphine -cisapride -dofetilide -dronedarone -pimozide -thioridazine -ziprasidone This medicine may also interact with the following medications: -carbamazepine -phenytoin -rifampicin -tramadol -other medicines that prolong the QT interval (cause an abnormal heart rhythm) What if I miss a dose? If you miss a dose, take it as soon as you can. If it is almost time for your next dose, take only that dose. Do not take double or extra doses. Where should I keep my medicine? Keep out of the reach of children. Store between 2 and 30 degrees C (36 and 86 degrees F). Throw away any unused medicine after the expiration date. What should I tell my health care provider before I take this medicine? They need to know if you have any of these conditions: heart disease history of irregular heartbeat liver disease low levels of magnesium or potassium in the blood an unusual or allergic reaction to ondansetron, granisetron, other medicines, foods, dyes, or preservatives or trying to get breast-feeding What should I watch for while using this medicine? Check with your doctor or health ocular care aide right away if you have any sign of an allergic reaction. You have been given the following additional information: Dehydration (Adult) Gastroenteritis, Viral (6Y-Adult) Ondansetron Hydrochloride Oral tablet (Electronically signed by Jan Mejia MD 02/05/2017 9:38)
--- NOTE | 2017-02-05 09:38 | ED DISCHARGE INSTRUCTIONS ---
Patient: ADRIAN MEJIAS General Instructions [facility] VisitID: [id number] [address], [place] [address] 41y, F Registration Date/Time: 02/05/2017 Dizziness. Mild volume depletion. Acute gastroenteritis. INSTRUCTIONS Drink plenty of fluids. Warnings: Further evaluation is necessary. GENERAL WARNINGS: Return or contact your physician immediately if your condition worsens or changes unexpectedly, if not improving as expected, or if other problems arise. Your Current Medications: CONTINUE TAKING THE FOLLOWING MEDICATIONS: Methadone HCl Oral : 50mg daily, Started: 02-02-17, to treat substance abuse. Prescription Medications: Zofran 4 mg: Take 1 orally every six hours as needed for nausea/vomiting. Dispense ten (10). No refills. Substitution is permissible. Understanding of the discharge instructions verbalized by patient and family. Follow-up with: [facility], , , [address], , [place], [address] Follow up tomorrow. Call for an appointment. ADDITIONAL INFORMATION Dehydration (Adult) Dehydration occurs when your body loses too much fluid. This may be the result of vomiting a lot or from diarrhea,sweating a lot, or a high fever. It may also happen if you dont drink enough fluid when youre sick. Misuse of diuretics (water pills) can also be a cause. Symptoms include thirst and feeling dizzy, weak, fatigued, or very drowsy. The diet described below is usually enough to treat most cases. Sometimes you may needmedicine. Home Care Follow these guidelines for home care: Drink at least 12 8-ounce glasses of fluid every day to overcome the dehydration. Fluid may include water; orange juice; lemonade; apple, grape, and cranberry juice; clear fruit drinks; electrolyte replacement and sports drinks; and teas and coffee without caffeine. If you have been diagnosed with a kidney disease, ask your doctor how much and what types of fluids you should drink to prevent dehydration. If you have kidney disease, drinking too much fluid can cause it build up in the your body and be dangerous to your health. If you have fever, muscle aching, or headache from a viral syndrome, you may useacetaminophen or ibuprofen, unless another medicine was prescribed for this.If you have chronic liver or kidney disease or ever had a stomach ulcer or GI bleeding, talk with your doctor before using these medicines. Don't take aspirin if you are younger than 18 and are ill with a fever.Aspirin raises the chance forsevere liver injury. Follow-up care Follow up with your health care provider if you don't get better in the next 24 to 48 hours. When to seek medical care Get prompt medical attention if any of theseoccur: Continued vomiting (cant keep liquids down) Frequent diarrhea (more than 5 times a day); blood (red or black color) or mucus in diarrhea Blood in vomit or stool Swollen abdomen or increasing abdominal pain Weakness, dizziness, or fainting Unusually drowsy or confused Reduced urine output or extreme thirst Fever of 100.4 F (38 C) oral or higher that does not get better with fever medication Viral Gastroenteritis (6Yr-Adult) Gastroenteritis is another name for thestomach flu.It is most often caused by a virus that affects the stomach and intestinal tract. Symptoms include stomach cramping and fever, vomiting and/or diarrhea, and can last from 2 to 7 days. The danger from repeated vomiting or diarrhea is dehydration. This is the loss of too much water and minerals from the body. When this occurs, body fluids must be replaced. Antibiotics are not effective for this illness, but simple home treatment will be helpful. Home Care If symptoms are severe, rest at home for the next 24 hours. Avoid tobacco, caffeine, and alcohol use, which can worsen symptoms. Acetaminophen (Tylenol) or ibuprofen (Motrin, Advil) may be usedfor fever or pain unless another medication was prescribed. NOTE: If you have chronic liver or kidney disease or ever had a stomach ulcer or GI bleeding, talk with your doctor before using these medicines. Aspirin should never be used in anyone under 18 years of age who is ill with a fever. It may cause severe liver damage. If medicines for diarrhea or vomiting were prescribed, be sure they are takenonly as directed. If vomiting, drink small amounts of clear fluids (such as water, sports drinks, clear sodas) at frequent intervals to prevent dehydration. Start with 1 to 2 tablespoons every 10 minutes. Once vomiting stops, follow these guidelines: During The First 12 To 24 Hours follow the diet below: Beverages: Sport drinks like Gatorade, soft drinks without caffeine; joseph ophelia, mineral water (plain or flavored), decaffeinated tea and coffee. Soups: Clear broth, consomm and bouillon Desserts: Plain gelatin (Jell-O), Popsicles and fruit juice bars. During The Next 24 Hours you may add the following to the above: Hot cereal, plain toast, bread, rolls, crackers Plain noodles, rice, mashed potatoes, chicken noodle or rice soup Unsweetened canned fruit (avoid pineapple), bananas Limit fat intake to less than 15 grams per day by avoiding margarine, butter, oils, mayonnaise, sauces, gravies, fried foods, peanut butter, meat, poultry, and fish. Limit fiber; avoid raw or cooked vegetables, fresh fruits (except bananas), and bran cereals. Limit caffeine and chocolate. Do not use spices or seasonings except salt. During The Next 24 Hours The patient can gradually resume a normal diet as symptoms lessen. Preventing Spread Hand washing with soap and water is the best way to prevent the spread of viruses. Caregivers should wash their hands before andafter touching the sick person. The sick person, as well as everyone in the family,should wash their hands after using the toilet and before meals. Clean the toilet after each use. People with diarrhea should not prepare food for others. If you are preparing your own foods, wash your hands before and after. Follow Up with your doctor as advised. Call your doctor if you are not improving over the next 2 to 3 days. If a stool (diarrhea) sample was taken, you may call in 2 days (or as directed) for the results. Get Prompt Medical Attention if any of the following occur: Increasing abdominal pain Continued vomiting (unable to keep liquids down) Frequent diarrhea (more than 5 times a day) Blood in vomit or stool (black or red color) Dark urine, reduced urine output, or extreme thirst Weakness, dizziness, fainting Drowsiness, confusion, stiff neck, or seizure Fever of 100.4F (38C) oral or higher, not better with fever medication New rash Ondansetron Hydrochloride Oral tablet What is this medicine? ONDANSETRON (on SLICK se whitney) is used to treat nausea and vomiting caused by chemotherapy. It is also used to prevent or treat nausea and vomiting after surgery. How should I use this medicine? Take this medicine by mouth with a glass of water. Follow the directions on your prescription label. Take your doses at regular intervals. Do not take your medicine more often than directed. Talk to your case checker regarding the use of this medicine in children. Special care may be needed. What side effects may I notice from receiving this medicine? Side effects that you should report to your doctor or health physician locums urgent care as soon as possible: allergic reactions like skin rash, itching or hives, swelling of the face, lips or tongue breathing problems dizziness fast or irregular heartbeat feeling faint or lightheaded, falls fever and chills swelling of the hands or feet tightness in the chest Side effects that usually do not require medical attention (report to your doctor or health physician locums urgent care if they continue or are bothersome): constipation or diarrhea headache What may interact with this medicine? Do not take this medicine with any of the following medications: -apomorphine -cisapride -dofetilide -dronedarone -pimozide -thioridazine -ziprasidone This medicine may also interact with the following medications: -carbamazepine -phenytoin -rifampicin -tramadol -other medicines that prolong the QT interval (cause an abnormal heart rhythm) What if I miss a dose? If you miss a dose, take it as soon as you can. If it is almost time for your next dose, take only that dose. Do not take double or extra doses. Where should I keep my medicine? Keep out of the reach of children. Store between 2 and 30 degrees C (36 and 86 degrees F). Throw away any unused medicine after the expiration date. What should I tell my health care provider before I take this medicine? They need to know if you have any of these conditions: heart disease history of irregular heartbeat liver disease low levels of magnesium or potassium in the blood an unusual or allergic reaction to ondansetron, granisetron, other medicines, foods, dyes, or preservatives or trying to get breast-feeding What should I watch for while using this medicine? Check with your doctor or health physician locums urgent care right away if you have any sign of an allergic reaction. You have been given the following additional information: Dehydration (Adult) Gastroenteritis, Viral (6Y-Adult) Ondansetron Hydrochloride Oral tablet (Electronically signed by Jan Mejia MD 02/05/2017 9:38)
--- NOTE | 2017-02-05 09:39 | ED MAR SUMMARY ---
..... Medication Administration Record [facility] [address] [place] [address] Patient: ADRIAN MEJIAS Visit ID: [id number] 41y, F Weight: 67.1 kg Height/Length: 64.5 in BMI: 25 ALLERGIES: Celexa, PCN Start 02:51 02/05/2017 Shavon Monroy RShanellNShanell, Stop 04:19 02/05/2017 Megan Vaca RSally Medication Administered: IV NS (SALINE), Dose: IV Fluids, Rate: 125 mL/hr, Bolus: 500 mL over 30 minute(s), Dispensed: 1000 mL bag, Site: #1 left AC. Medication Ordered: IV NS : initial bolus 500 mL (1000 mL/hr), then 125 mL/hr for 4h (NOW); Urgent.
--- NOTE | 2017-02-05 09:39 | ED MED RECONCILIATION SUMMARY ---
Patient: ADRIAN MEJIAS Medication Reconciliation Report [facility] VisitID: [id number] [address] [place] [address] 41y, F Registration Date/Time: 02/05/2017 Weight: 67.1 kg Height/Length: 60 in. BMI: 25.0 ALLERGIES: Celexa, PCN The patient's Home Medications are listed below: CONTINUE TAKING THE FOLLOWING MEDICATIONS: Methadone HCl Oral 50mg, daily, to treat substance abuse The source(s) of the original Home Medication information: Not obtained. The following Medications were given to the patient in the Emergency Department: IV NS IV Fluids bolus 500 mL over 30 minute(s), then 125 mL/hr, administered: 02/05/2017 2:51:00 AM The following Medications were prescribed to the patient: Zofran 4 mg: Take 1 orally every six hours as needed for nausea/vomiting. Dispense ten (10). No refills. Substitution is permissible. -- Jan Mejia MD
--- NOTE | 2017-02-05 09:39 | ED MAR SUMMARY ---
..... Medication Administration Record [facility] [address] [place] [address] Patient: ADRIAN MEJIAS Visit ID: [id number] 41y, F Weight: 67.1 kg Height/Length: 64.5 in BMI: 25 ALLERGIES: Celexa, PCN Start 02:51 02/05/2017 Shavon Monroy RShanellNShanell, Stop 04:19 02/05/2017 Megan Vaca RSally Medication Administered: IV NS (SALINE), Dose: IV Fluids, Rate: 125 mL/hr, Bolus: 500 mL over 30 minute(s), Dispensed: 1000 mL bag, Site: #1 left AC. Medication Ordered: IV NS : initial bolus 500 mL (1000 mL/hr), then 125 mL/hr for 4h (NOW); Urgent.
--- NOTE | 2017-02-05 09:39 | ED MED RECONCILIATION SUMMARY ---
Patient: ADRIAN MEJIAS Medication Reconciliation Report [facility] VisitID: [id number] [address] [place] [address] 41y, F Registration Date/Time: 02/05/2017 Weight: 67.1 kg Height/Length: 60 in. BMI: 25.0 ALLERGIES: Celexa, PCN The patient's Home Medications are listed below: CONTINUE TAKING THE FOLLOWING MEDICATIONS: Methadone HCl Oral 50mg, daily, to treat substance abuse The source(s) of the original Home Medication information: Not obtained. The following Medications were given to the patient in the Emergency Department: IV NS IV Fluids bolus 500 mL over 30 minute(s), then 125 mL/hr, administered: 02/05/2017 2:51:00 AM The following Medications were prescribed to the patient: Zofran 4 mg: Take 1 orally every six hours as needed for nausea/vomiting. Dispense ten (10). No refills. Substitution is permissible. -- Jan Mejia MD
== END 2017-02-05 04:19 | disposition home or self-care (01) ==
LOC: ED SRH 01:53
DX: K52.9 Noninfective gastroenteritis and colitis, unspecified (principal); E86.9 Volume depletion, unspecified; R42 Dizziness and giddiness; E11.9 Type 2 diabetes mellitus without complications; Z79.891 Long term (current) use of opiate analgesic; Z88.0 Allergy status to penicillin; Z72.0 Tobacco use
CPT/HCPCS: 81460; 90004; 90100; 92235; 92530; 92760; 92761; 92762; 92763; 92764; 92765; 92766; 92767; 93070; 95059